=== PATIENT | male | born 1950 | race Caucasian/White ===

== ENCOUNTER → 2016-11-04 | Outpatient (CLI) | payer BC ==
[~2016-11-04] MED LIST: ALPR0.25 PO; CZR50 PO; GLUC1CAP33 PO; LACTTAB4 PO; MULT-506 PO; OXYSR10 PO; RXC5 PO; TRAV0.00 OPB
[2016-11-04 10:03] LABS: BASO % 0.5 %; BASO ABS # 0.02 K/uL (0-0.2); COMPLETE YES; EOS % 3.2 %; IG% 0.2 %; LYMPH % 31.5 %; LYMPH ABS # 1.37 K/uL (1.2-3.4); MEAN CELL VOLUME 95.5 fL (80-100); MEAN CORPUSCULAR HEMOGLOBIN 31.7 pg (25-34); MEAN CORPUSCULAR HGB CONC 33.2 g/dl (32-36); MEAN PLATELET VOLUME 9.7 fL (7.4-10.4); MONO % 9.2 %; NEUT % 55.4 %; PLATELET COUNT 236 K/uL (130-400); RED BLOOD COUNT 3.98 M/uL (4.7-6.1); WHITE BLOOD COUNT 4.35 K/uL (4.8-10.8)
[2016-11-04 12:34] LABS: ALT/SGPT 26 U/L (12-78); AST/SGOT 17 U/L (15-37); BLOOD UREA NITROGEN 16 mg/dl (7-18); BUN/CREATININE RATIO 17.6 (10-20); CALCIUM 8.5 mg/dl (8.5-10.1); CARBON DIOXIDE 27 mmol/L (21-32); CHLORIDE 108 mmol/L (98-107); CHOLESTEROL 172 mg/dl (0-200); CREATININE 0.92 mg/dl (0.60-1.40); GLUCOSE 99 mg/dl (70-99); POTASSIUM 3.9 mmol/L (3.5-5.1); SODIUM 139 mmol/L (136-145)
[2016-11-04 12:45] LABS: ALB/GLOB RATIO 0.9 (0.9-2); ALKALINE PHOSPHATASE 61 U/L (45-117); CHOLESTEROL/HDL RATIO 3.2; HDL CHOLESTEROL 54 mg/dl; LDL CHOLESTEROL CALCULATED 99 mg/dl; THYROID STIMULATING HORMONE 0.705 uIu/ml (0.300-4.500); TRIGLYCERIDES 94 mg/dl (0-150); VERY LOW DENSITY LIPOPROT CALC 19 mg/dl
== END | disposition home or self-care (01) ==
LOC: C.LAB1850 09:08
PROVIDERS: ATTEND Internal Medicine Pulmonary Disease
DX: F06.4 Anxiety disorder due to known physiological condition (principal)

== ENCOUNTER 2017-05-12 08:32 | Inpatient (IN) | payer BC, OTHER ==
[2017-04-27 15:11] VITALS: Ht 182.9 cm; Wt 103.9 kg
--- NOTE | 2017-04-27 15:53 | PAT Medication Instructions ---
Service Date Apr 27, 2017. Current Home Medication List Alprazolam (Xanax), 0.25 MG PO HS Glucosamine-Chondroitin (Glucosamine & Chondroitin 500-400 mg), 2 TAB PO QAM Ibuprofen (Advil), 400 MG PO HS Lactobacillus (Acidophilus), 1 TAB PO QAM Losartan Potassium (Losartan Potassium), 50 MG PO QAM Multivitamin (Multivitamin), 1 TAB PO QAM Travoprost (Travatan Z), 1 DROP OPB HS [Collagen Otc], 1 TAB PO QPM [Decongestant Otc], 1 TAB PO PRN [Msm], 1 TAB PO QAM Medication Instructions For Your Scheduled Surgery - Hold the following medications 2 weeks prior to surgery: [Msm], 1 TAB PO QAM [Collagen Otc], 1 TAB PO QPM Glucosamine-Chondroitin (Glucosamine & Chondroitin 500-400 mg), 2 TAB PO QAM - Hold the following medications 7 days prior to surgery per your surgeon's instructions: Ibuprofen (Advil), 400 MG PO HS - Hold the following medications the morning of surgery: Lactobacillus (Acidophilus), 1 TAB PO QAM Losartan Potassium (Losartan Potassium), 50 MG PO QAM Multivitamin (Multivitamin), 1 TAB PO QAM [Decongestant Otc], 1 TAB PO PRN - Take the following medications as scheduled the night before surgery: Alprazolam (Xanax), 0.25 MG PO HS Travoprost (Travatan Z), 1 DROP OPB HS [Decongestant Otc], 1 TAB PO PRN (if needed) NOTHING TO EAT OR DRINK AFTER MIDNIGHT If you have any questions please call us at [phone] or [phone] or [phone]
--- NOTE | 2017-04-27 16:32 | DIAGNOSTIC IMAGING REPORT ---
CHEST 2 VIEWS ROUTINE CLINICAL HISTORY: PAT preoperative COMPARISON STUDY: 09/18/2013 FINDINGS: The bones soft tissues and hemidiaphragms are normal. The cardiomediastinal silhouette is normal. The lungs are clear. The pulmonary vasculature is normal. IMPRESSION: Negative chest. The above report was generated using voice recognition software. It may contain grammatical, syntax or spelling errors. Electronically signed by: Francisco Ivey M.D. 04/27/2017 4:31 PM Dictated Date/Time: 04/27/2017 4:30 PM
[2017-04-27 16:33] LABS: BASO % 0.6 %; BASO ABS # 0.03 K/uL (0-0.2); EOS % 2.8 %; EOS ABS # 0.14 K/uL (0-0.5); HEMATOCRIT 38.4 % (42-52); HEMOGLOBIN 13.2 g/dL (14.0-18.0); IG# 0.01 K/uL (0.00-0.02); LYMPH % 30.9 %; LYMPH ABS # 1.55 K/uL (1.2-3.4); MEAN CELL VOLUME 95.8 fL (80-100); MEAN CORPUSCULAR HEMOGLOBIN 32.9 pg (25-34); MEAN CORPUSCULAR HGB CONC 34.4 g/dl (32-36); MEAN PLATELET VOLUME 9.8 fL (7.4-10.4); MONO % 8.2 %; MONO ABS # 0.41 K/uL (0.11-0.59); NEUT % 57.3 %; NEUT ABS # 2.88 K/uL (1.4-6.5); PLATELET COUNT 248 K/uL (130-400); RED CELL DISTRIBUTION WIDTH CV 13.1 % (11.5-14.5); RED CELL DISTRIBUTION WIDTH SD 45.5 fL (36.4-46.3); WHITE BLOOD COUNT 5.02 K/uL (4.8-10.8)
[2017-04-27 16:45] LABS: PTT PATIENT 24.6 SECONDS (21.0-31.0)
[2017-04-27 16:48] LABS: ALBUMIN 3.7 gm/dl (3.4-5.0); CALCIUM 8.7 mg/dl (8.5-10.1); CREATININE 0.82 mg/dl (0.60-1.40)
[2017-04-28 06:09] LABS: HEMOGLOBIN A1C 5.4 % (4.5-5.6)
--- NOTE | 2017-05-11 20:25 | HISTORY & PHYSICAL EXAMINATION ---
DATE OF ADMISSION: 05/12/2017 CHIEF COMPLAINT: Chronic left knee pain. HISTORY OF PRESENT ILLNESS: This is a 66-year-old male patient of Dr. Barkley'avelino complaining of chronic left knee pain, longstanding, now progressively getting worse. The patient has failed conservative treatment. The patient use anti-inflammatories. The patient had a partial knee replacement on the left in 2002. Since then, he has had increasing pain with hiking and biking and activities of daily living. He has been diagnosed with a loose partial left knee replacement and wishes to proceed with a left revision partial knee replacement to total knee replacement. PAST MEDICAL HISTORY: Hypertension, anxiety, osteoarthritis, spondylolysis in his lower back, BPH. SOCIAL HISTORY: Nonsmoker, 20 drink per week drinker. PAST SURGICAL HISTORY: Left knee, right knee, left shoulder, right hip, right shoulder, prostate. FAMILY HISTORY: Noncontributory. REVIEW OF SYSTEMS: The patient complains of chronic left knee pain after a partial knee replacement in 2002, failed conservative treatment. Otherwise, denies any shortness of breath, chest pain, nausea, vomiting or any other joint complaints. MEDICATIONS: 1. Losartan 50 mg daily. 2. Travatan 0.004% eyedrops 1 drop daily in the affected eye. 3. Glucosamine chondroitin daily. 4. Acidophilus capsule daily. 5. Ibuprofen 200 mg as needed. 6. Alprazolam 0.25 mg as needed daily. ALLERGIES: IODINE AND SEAFOOD. PHYSICAL EXAMINATION: GENERAL: Well-developed, well-nourished 66-year-old male in no acute distress. He is alert and oriented x3 and pleasant. HEENT: Normocephalic, atraumatic. Extraocular motions are intact. Pupils are equal and reactive to light. HEART: Regular rate and rhythm. No murmurs are appreciated. LUNGS: Clear. ABDOMEN: Soft, nontender, bowel sounds present. EXTREMITIES: Left knee reveals a varus deformity. He has a limited range of motion of negative 5-125 degrees of motion. Ligaments are stable. He has crepitation with passive range of motion. He has 5/5 strength. NEUROLOGIC: Neurovascularly he is intact in his left lower extremity. DIAGNOSES: Chronic left knee pain status post partial knee replacement in 2002. He also has a history of hypertension, anxiety, osteoarthritis, spondylolisthesis and benign prostatic hypertrophy. PLAN: The patient was advised of his diagnosis. Indications, risks, benefits, and postop course have all been reviewed. The patient wish to proceed with a left knee revision, partial knee replacement to total knee replacement. Necessary consent forms, preoperative testing and clearances will be obtained.
[2017-05-12] VITALS (7 sets, daily range): BP systolic 138–171; BP diastolic 74–98; PULSE 62–89; TEMP 36.5–36.8; O2SAT 93–99
[~2017-05-12] VITALS: Ht 182.9 cm; Wt 103.9 kg
[2017-05-12] MEDS: TRANEXAMIC ACID INJ 1,000 MG in SYRINGE 0 ML IV SCH ×2 (06:30→12:25)
[~2017-05-12 08:32] MED LIST changes: +ACETAMINOPHEN 500 MG TAB PO SCH; +ATROPINE SULFATE 0.1 MG/ML 5ML SYR IV PRN; +BUPIVACAINE 0.25% 30 ML VIAL ONE; +BUPIVACAINE 0.5 % 5 MG/1 ML PF 10ML VIAL ONE; +CEFAZOLIN 2000MG IV PUSH 10 ML IV SCH; +CeleBREX 200 MG CAP PO SCH; +DEXAMETHASONE 4 MG TAB PO SCH; +EpHEDrine SULFATE INJ 50 MG/ML AMP IV PRN; +FAMOTIDINE 20 MG TAB PO SCH; +FENTANYL CITRATE INJ 50 MCG/1 ML 2 ML VIAL IV PRN; +GABAPENTIN 300 MG CAP PO SCH; +IBUP-1050 PO; +LACTATED RINGER'S 1000ML 500 ML IV SCH; +METOCLOPRAMIDE HCL 10 MG TAB PO SCH; +MSM PO; +ONDANSETRON INJ 2 MG/ML 2 ML VIAL IV PRN; -OXYSR10 PO; +ROPIVACAINE 5MG/ML 30 ML 150 MG, BUPIVACAINE 0.5% MPF INJ 30 ML, EpINEphrine HCL INJ 0.... INFIL SCH; -RXC5 PO; +VANCOMYCIN INJ 1,500 MG in SODIUM CHLORIDE 0.9% 500ML 500 ML IV SCH; +[UNRECOGNIZED DRUG - OTHER] PO; +[UNRECOGNIZED DRUG - OTHER] PO
[2017-05-12] MEDS: LACTATED RINGER'S 1000ML 1,000 ML IV SCH ×2 (09:36→09:37)
[2017-05-12] MEDS ORDERED: MIDAZOLAM HCL 1 MG/ML 2ML VIAL ONE ×2 (12:00→14:15)
[2017-05-12] MEDS ORDERED: BACITRACIN 50000 UNIT VIAL ONE ×2 (12:27→16:16)
[2017-05-12] MEDS ORDERED: POVIDONE-IODINE OP SOLN 30 ML BTL ONE (12:27)
[2017-05-12] MEDS ORDERED: ORTHO JOINT ANESTHETIC ONE (12:27)
--- NOTE | 2017-05-12 12:30 | History & Physical Bridge Note ---
H&P Re-Evaluation Bridge Note: I have examined the patient, reviewed the History & Physical and in the interval since the performance of the History & Physical I have noted the following changes of clinical significance: No changes noted
[2017-05-12] MEDS ORDERED: PROPOFOL IV EMULSION 10 MG/ML 20 ML VIAL IV ONE ×2 (14:18→14:19)
[2017-05-12] MEDS ORDERED: LIDOCAINE HCL 2% 2 ML VIAL (20MG/ML) ONE (14:18)
[2017-05-12] MEDS ORDERED: FENTANYL CITRATE INJ 50 MCG/1 ML 2 ML VIAL ONE ×2 (14:18→17:23)
[2017-05-12] MEDS ORDERED: MoRPHine SULFATE 2 MG/ML CARP IV PRN (17:00)
[2017-05-12] MEDS ORDERED: SOD PHOSPHATE/SOD BIPHOSPHATE ENEMA 132 ML BTL PR PRN (17:00)
[2017-05-12] MEDS ORDERED: TRAMADOL HCL 50 MG TAB PO PRN (17:00)
[2017-05-12] MEDS ORDERED: MAGNESIUM HYDROXIDE SUSP 30 ML UDC PO PRN (17:00)
[2017-05-12] MEDS ORDERED: METOCLOPRAMIDE HCL INJ 5 MG/ML 2 ML VIAL IV PRN (17:00)
[2017-05-12] MEDS ORDERED: OXYCODONE HCL IR 5 MG TAB (IMMEDIATE RELEASE) PO PRN (17:00)
[2017-05-12] MEDS ORDERED: BISACODYL 10 MG SUPP PR PRN (17:00)
[2017-05-12] MEDS ORDERED: ZOLPIDEM TARTRATE 5 MG TAB PO PRN (17:00)
[2017-05-12] MEDS ORDERED: ONDANSETRON INJ 2 MG/ML 2 ML VIAL IV PRN (17:00)
--- NOTE | 2017-05-12 17:03 | [facility] Post Operative Brief Note ---
Immediate Operative Summary Operative Date May 12, 2017. 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 Surgeon Dr. Barkley Mens Locker Room Attendant Surgeon(s) Francisco Clark PA-C Estimated Blood Loss 50 ml Findings Consistent with Post-Op Diagnosis Specimens A: Removed hardware left partial knee B: Left knee bone and tissue Culture #1- Left knee synovial fluid- aerobic and anaerobic cultures sent stat for gram stain, culture and sensitivity. Sent from room at 1335. Frozen specimen #1- Left tibia soft tissue- for white blood cell/high power field. Sent from room at 1400 Drains None Anesthesia Type MAC Spinal Regional Complication(s) none
--- NOTE | 2017-05-12 17:35 | DIAGNOSTIC IMAGING REPORT ---
TWO VIEWS LEFT KNEE CLINICAL HISTORY: Postoperative examination. FINDINGS: AP and crosstable lateral portable views of the left knee are obtained. A left knee arthroplasty is in near anatomic alignment. There is a long tibial stem. There has been undersurface remodeling of the patella. No acute fracture is seen. There are expected postoperative changes around the knee including skin clips, a surgical drain, soft tissue edema, and subcutaneous gas. IMPRESSION: Expected postoperative changes status post left knee arthroplasty. No acute fracture is seen. Electronically signed by: Mike Gallegos M.D. 05/12/2017 5:34 PM Dictated Date/Time: 05/12/2017 5:33 PM
--- NOTE | 2017-05-12 17:37 | Anesthesiology Progress Note ---
Anesthesia Post Op Note Date & Time May 12, 2017 at 17:37 Vital Signs Pain Intensity: 3 Vital Signs Past 12 Hours Date Time Temp Pulse Resp B/P (MAP) Pulse Ox O2 Delivery O2 Flow Rate FiO2 05/12/17 17:35 74 16 138/87 98 Oxymask 3 05/12/17 17:25 71 16 141/76 98 Oxymask 5 05/12/17 17:15 83 16 140/80 98 Oxymask 10 05/12/17 17:08 36.2 90 16 141/88 98 Oxymask 10 05/12/17 09:02 36.6 62 20 171/98 99 Room Air Notes Mental Status: alert / awake / arousable, participated in evaluation Pt Amnestic to Procedure: Yes Nausea / Vomiting: adequately controlled Pain: adequately controlled Airway Patency, RR, SpO2: stable & adequate BP & HR: stable & adequate Hydration State: stable & adequate Neuraxial Anesthesia: was administered, sensory block is resolving Anesthetic Complications: no major complications apparent
[2017-05-12] MEDS: D5W AND 1/2NSS + 20MEQ KCL 1,000 ML IV SCH (19:28)
[2017-05-12] MEDS: CEFAZOLIN IV 2,000 MG in SYRINGE 5 ML IV SCH (19:39)
[2017-05-12] MEDS ORDERED: ALPRAZOLAM 0.25 MG TAB PO SCH (21:00)
[2017-05-12] MEDS: CeleBREX 200 MG CAP PO SCH (21:25)
[2017-05-12] MEDS: DOCUSATE SODIUM 100 MG CAP PO SCH (21:26)
[2017-05-12] MEDS: ACETAMINOPHEN 500 MG TAB PO SCH (21:27)
[2017-05-12] MEDS: TRAVOPROST Z 0.004% OPH SOLN 2.5 ML BTL OPB SCH (21:28)
--- NOTE | 2017-05-12 21:47 | OPERATIVE REPORT ---
DATE OF OPERATION: 05/12/2017 INDICATION FOR PROCEDURE: The patient is a 66-year-old male with recently developing increasing pain in his left knee. He had a repeat G type unicompartmental knee replacement 15 years ago. He did well for many, many years until just started having pain recently. We did get radiographs which demonstrated he had developed a very large subchondral cyst in the medial tibia with multiloculated cyst and bone loss due to osteolysis and he also has subluxation of the femur on the tibia medially with osteoarthritis in the lateral compartment now due to subluxation. The patient's labs demonstrate no evidence of infection. 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 POSTOPERATIVE DIAGNOSES: Same. OPERATIVE PROCEDURE: Revision of a medial compartment unicompartmental knee replacement to a total knee replacement with bone grafting of the tibial osteolytic bone cyst with autograft from tibial, femoral and patellar bone cuts. SURGEON: Dr. Barkley. WALL WORKER: RIGOBERTO Buchanan. ANESTHESIA: Spinal and regional block and Orthomix and sedation. DESCRIPTION OF PROCEDURE: The patient taken to the operating room, anesthetized under anesthesia as dictated. He was placed supine on the operating room table. Pneumatic tourniquet was placed on left upper thigh. His left lower extremity was prepped and draped in the usual sterile fashion using ChloraPrep. Knee exam demonstrated that he had no instability with valgus stress, very tight medial compartment, he did have some laxity of his lateral ligaments due to chronic varus knee and he had about a 10 degree flexion contracture, but had good flexion to 130 degrees. He had very large varicose veins in the left lower extremity. After his leg was sterilely prepped and draped, it was elevated, exsanguinated with Esmarch bandage. Pneumatic tourniquet was raised to 325 mmHg. He had a previous medial scar from his unicompartmental knee replacement, we utilized that and extended distally to the medial tibial tubercle and proximally above the patella to the mid quad tendon area. The skin was incised sharply and subcutaneous flaps were elevated. Incision was made through the medial retinaculum and extended up in the mid third of the quadriceps tendon and extended down to the medial tibial tubercle. Intraarticular findings demonstrated the tibial poly was loose, depressed into the tibia, there was bony buildup osteophytes around the medial side of the poly. Lateral femoral condyle was down the bone from subluxation impinging on the spine of the tibia. Patellofemoral joint had some moderate arthritis but relatively preserved. The femoral component was intact. 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 Prior any irrigation, we did take a culture. Then attention was taken to exposure. The system used to for revision was the [employer] with a primary femur and revision stemmed tibia cemented. The scarred infrapatellar fat pad was resected. We did releases around the proximal medial tibial plateau to expose the poly completely on the tibia. The lateral synovial bands were released. The fat pad over the anterior femur for the flange of the femoral component was resected in the area where the component would be placed. There was some chronic synovitis in the knee and all this chronic synovitis was resected so we did electrocautery synovectomy. The lateral meniscus was resected, crucial ligaments were resected and all osteophytes were resected. Attention was first taken to removing the femoral component. I used an Ultradrive to melt the cement. After work this around the component medially, laterally and posteriorly and superiorly, we used some stacked osteotomes to remove the femoral implant and removed all remainder of the cement from the femoral condyle. Then the tibial poly loose was just removed. Then, a drill was used to make an intramedullary hole into the femoral canal. The guide billy was placed and the distal femoral cutting guide was placed to cut a 5 degree valgus cut. The distal femoral cut was made with the oscillating saw. Then the knee was extended and a subperiosteal peel lateral release was performed around the patella. Patella width was measured and width was reproduced using a freehand cut technique and a 38 patella domes component. The drill holes were made for the component and the lateral facet was beveled off to prevent any impingement and the medial bone spurs were excised. Then a better retraction of the femur, the femur was sized with the sizing component. Because of the loss of the inferior femoral condyle, we had to tremaine out the epicondylar axis, matched this with the guide and match the sulcus of the patellofemoral joint with rotation laterally rotating the measuring guide to match the epicondylar axis, pinned this into position and then sized the femur for an 8 femoral component. Appropriate drill holes were made and then the 4-in-1 cutting block was impacted and anterior, posterior and chamfer cuts were made. No augments were required and a primary femoral component was able to be used. Then attention was taken to the tibia. First used the external tibial cutting guide to a perpendicular cut to the long axis of the tibia, making the cut just below the area where the poly was on the medial side of the knee. Disposed intramedullary canal and also exposed the large medial cyst. He only had a shell lot of bone remaining the medial metaphysis proximally of the tibia. There was a multiloculated large cyst. It was at least 3-1/2 close to 4 cm. It extended around the medial side posteriorly and then anteriorly to the midline and down into the metaphysis. The anterior medial aspect of the tibia was very thin. The cyst was curetted out. We used a rongeur and a curette and all cavities of cysts were curetted out with any cystic material and membrane. We did send off frozen sections of the soft tissue underlying the poly component on the tibia and some of the synovium, which came back no acute inflammation. The Gram stain also came back no organisms but some white blood cells. The tibia was then prepared first reaming the intramedullary canal of the tibia until we got good cortical chatter, which was about 15 mm stem; however, 15 was tight as we so chose to do cementing a 14 stem. Then the devices for preparing the proximal tibia were used. First, the drills left in and the intramedullary guide off the drill was set to take few more millimeters of the temporary cut that was first made. This was assured a perpendicular cut to the long axis of the tibia. We made this cut and then used the sizing guide if an 8 tibia best fit the entire bone of the tibia which was quite widened from the chronic remodeling of the tibia. We used a high offset 6 mm directed more anteromedially at the 11 o'clock position. The drill holes were used for the offset in the proximal portion of the stem of the tibia and the fins with the punch were used as well. This trial was assembled and pinned in position and attention was taken to the femoral trialing. The femoral trial was inserted, centered and the notch-cutting devices were used and a collet was placed, a 13 high flex insert gave balanced ligaments through full range of motion, but the patella did track off laterally, so had to do a lateral release leaving the synovium intact and this allowed the patella to track completely centrally through full range of motion and ligaments were balanced. At this point, tourniquet was up just under 2 hours, so we just put the tourniquet down and left it down for 90 to 20 minutes while I used the bone from the bone cuts, both the tibial and the femoral and from the patella. Cancellous bone was all removed with a rongeur, so we could bone graft the very large cyst. Then, some hemostasis was performed cauterizing any bleeders and areas of bleeding throughout the knee joint. Then, the knee was packed with some sponges and we used the Esmarch bandage again to exsanguinate the leg and the tourniquet was raised back up to 325 mmHg. Then went ahead and irrigated out the knee with antibiotic solution with bacitracin. Then went ahead and irrigated out the tibia copiously, femur and remainder of the joint and then tried all surfaces to expose the tibia and then placed a 20 mm trial stem to fill of the proximal canal and then placed bone graft into a large cyst to keeping the bone graft from going down into the canal and then we used a bone tamp to pack the bone graft into the large cyst, leading some of the cyst superficially to be cemented into the bone graft. After that was completed, we did place a bone restrictor at the appropriate depth into the canal and then mixed Palacos G cement. I then went ahead and cemented the tibial component first, which was the size 8 tibial component with a 14 x 120 mm cemented stem with a 6 mm offset at 11 o'clock position. This was impacted fully and excess cement was cleared. Then, the femur was cemented in place and impacted in position and then we placed a 30 mm high flex poly and extended the knee until the cement cured. We used batch of cement to cement the patella which was a 38 patella. We did soak the knee with a Betadine soak per protocol while the cement cured. After all cement cured, any excess cement was removed with an artist chisel had hardened and we took knee through full range of motion and the implants were stable. The knee was stable through full range of motion and patella tracked centrally. At this time, the knee was copiously irrigated with pulsatile lavage antibiotic solution with bacitracin. Then, the 2 drains were brought out laterally and connected to a Hemovac. The quadriceps tendon and medial retinaculum were closed with interrupted [id number] #1 Vicryl sutures. The knee was taken through full range of motion and repair was secure. The subcutaneous tissue was closed with interrupted 2-0 Vicryl sutures and the skin was closed with baltazar. Sterile Silverlon dressing was applied and the tourniquet was let down and the patient tolerated the procedure well. Estimated blood loss was around 50 mL. Specimens for frozen sections and cultures. RIGOBERTO Buchanan was my front desk assistant. He functioned as front desk assistant for the entire procedure. He assisted in patient positioning, prepping, draping, leg positioning, soft tissue retraction, instrument management in the subcutaneous and skin closure and will participate in the postoperative care of the patient. I attest to the content of the Intraoperative Record and any orders documented therein. Any exception s are noted below.
[2017-05-12] MEDS ORDERED: NURSING VERBAL MED ORDER ONE (22:15)
[2017-05-13] VITALS (7 sets, daily range): BP systolic 122–174; BP diastolic 64–77; PULSE 58–69; TEMP 36.5–36.8; O2SAT 94–98
[2017-05-13] MEDS: ALPRAZOLAM 0.25 MG TAB PO PRN (00:07)
[2017-05-13] MEDS: D5W AND 1/2NSS + 20MEQ KCL 1,000 ML IV SCH ×2 (03:33→13:49)
[2017-05-13] MEDS: CEFAZOLIN IV 2,000 MG in SYRINGE 5 ML IV SCH (03:34)
[2017-05-13] MEDS: RIVAROXABAN 10 MG TAB PO SCH (05:31)
[2017-05-13] MEDS: ACETAMINOPHEN 500 MG TAB PO SCH ×3 (05:31→21:04)
[2017-05-13 06:09] LABS: HEMATOCRIT 29.9 % (42-52); HEMOGLOBIN 10.2 g/dL (14.0-18.0); MEAN CELL VOLUME 96.1 fL (80-100); MEAN CORPUSCULAR HEMOGLOBIN 32.8 pg (25-34); MEAN CORPUSCULAR HGB CONC 34.1 g/dl (32-36); MEAN PLATELET VOLUME 9.7 fL (7.4-10.4); PLATELET COUNT 235 K/uL (130-400); RED CELL DISTRIBUTION WIDTH CV 12.9 % (11.5-14.5); RED CELL DISTRIBUTION WIDTH SD 44.7 fL (36.4-46.3); WHITE BLOOD COUNT 14.02 K/uL (4.8-10.8)
[2017-05-13 06:42] LABS: CALCIUM 7.7 mg/dl (8.5-10.1); CREATININE 0.98 mg/dl (0.60-1.40)
--- NOTE | 2017-05-13 07:54 | Orthopedic Progress Note ---
Orthopedic Progress Note Date of Service May 13, 2017. Subjective Post OP Day: 1 Reports: feeling well, pain controlled w PO medications, Denies: complaints, chest pain, SOB, nausea / vomiting, light headedness, calf pain Objective calves soft nontender, N/V intact, capillary refill less than 2 sec., dressing C /D/I, A&O x3, toes mobile Date Time Temp Pulse Resp B/P (MAP) Pulse Ox O2 Delivery O2 Flow Rate FiO2 05/13/17 07:42 36.7 61 19 135/73 (93) 94 Room Air 05/13/17 03:57 36.8 69 16 127/64 (85) 97 Room Air 05/12/17 22:55 Room Air 05/12/17 22:45 36.8 84 18 146/76 (99) 93 Room Air 05/12/17 21:33 36.6 83 18 152/78 (102) 94 Room Air 05/12/17 20:29 89 18 150/79 (102) 96 Nasal Cannula 2.0 05/12/17 19:30 36.6 78 18 150/78 (102) 96 Nasal Cannula 2.0 05/12/17 19:06 36.5 74 18 152/84 (106) 98 Nasal Cannula 2.0 05/12/17 18:30 97 Nasal Cannula 2.0 05/12/17 18:30 97 Nasal Cannula 2.0 05/12/17 18:30 36.8 84 18 138/74 (95) 97 Nasal Cannula 2.0 05/12/17 18:05 87 16 133/82 97 Nasal Cannula 3 05/12/17 17:55 78 16 130/70 98 Nasal Cannula 3 05/12/17 17:45 36.4 78 16 141/85 96 Nasal Cannula 3 05/12/17 17:35 74 16 138/87 98 Oxymask 3 05/12/17 17:25 71 16 141/76 98 Oxymask 5 05/12/17 17:15 83 16 140/80 98 Oxymask 10 05/12/17 17:08 36.2 90 16 141/88 98 Oxymask 10 05/12/17 09:02 36.6 62 20 171/98 99 Room Air Laboratory Results 24 Hours: Test 05/13/17 05:16 Hematocrit 29.9 % Hemoglobin 10.2 g/dL Assessment & Plan Assessment: POD #1, Revision Left partial knee replacement to TKA Plan: PT/ OT DVT proph- Xarelto D/C planning- Home w OPPT Inhouse Planning Pain Management: Celebrex, Morphine, PO Tylenol, Oxy IR DVT Prophylaxis: TEDs, SCDs, Xarelto Discharge Planning Discharge Planning: home with oppt Pain Management: Celebrex, PO Tylenol, Oxy IR DVT Prophylaxis: TEDs, Xarelto Therapy: Physical Therapy, Occupational Therapy
--- NOTE | 2017-05-13 08:40 | Medical Consult ---
Consultation Date of Consultation: May 13, 2017. Attending Physician: Juan M Barkley M.D. Reason for Consultation: Medical Management History of Present Illness This is a 66 yo M with pmhx of HTN, osteoarthritis, anxiety, significant alcohol use of more than 25 drinks per week, who presented for elective Left TKA by Dr. Barkley on 05/12/17. The patient was seen this morning and is doing well. His hemovac drain wasn't suctioning earlier and needed fixed, since then he has good amount of bloody drainage outs, so the line will remain in place today per his report. He states his left foot is still slightly numb, but has been ambulating about the josue with walker without difficulty. He is passing gas, no BM yet. He plans on home PT as he lives with his who is disabled and whom he cares for. He denies any issues with withdrawal, shaking, or feeling he needs etoh. 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[employer]) Allergies Coded Allergies: Canned Fish (Verified Allergy, Severe, ALL SEAFOOD=THROAT SWELLS, 05/12/17) NO KNOWN DRUG ALLERGIES (Verified Allergy, Unknown, none, 05/12/17) Current Inpatient Medications Current Inpatient Medications Medications (Trade) Dose Ordered Sig/Kb Route Start Time Stop Time Status Last Admin Dose Admin Lactobacillus Acidophilus (Floranex Tab) 1 tab QAM PO 05/13/17 09:00 06/12/17 08:59 Losartan Potassium (coZAAR TAB) 50 mg QAM PO 05/13/17 09:00 06/12/17 08:59 Travoprost (Travatan Z) 1 drops HS OPB 05/12/17 21:00 06/11/17 20:59 05/12/17 21:28 1 DROPS Potassium Chloride/Dextrose/ Sod Cl 1,000 ml @ 100 mls/hr Q10H IV 05/12/17 18:15 05/13/17 18:14 05/13/17 03:33 100 MLS/HR Celecoxib (CeleBREX CAP) 200 mg BID PO 05/12/17 21:00 06/11/17 20:59 05/12/17 21:25 200 MG Oxycodone HCl (Roxicodone Immediate Rel Tab) 1 TABLET FOR PAIN RATING... Q4H PRN PO 05/12/17 17:00 05/26/17 16:59 Morphine Sulfate (MoRPHine SULFATE INJ) FOR PAIN, 2-4MG 2MG FOR P... Q2H PRN IV 05/12/17 17:00 05/26/17 16:59 Acetaminophen (Tylenol Tab) 1,000 mg Q8H PO 05/12/17 22:00 06/11/17 21:59 05/13/17 05:31 1,000 MG Magnesium Hydroxide (Milk Of Magnesia Susp) 30 ml Q6H PRN PO 05/12/17 17:00 06/11/17 16:59 Bisacodyl (Dulcolax Supp) 10 mg DAILY PRN TX 05/12/17 17:00 06/11/17 16:59 Sodium Biphosphate/ Sodium Phosphate (Fleet Enema) 132 ml DAILY PRN TX 05/12/17 17:00 06/11/17 16:59 Docusate Sodium (coLACE CAP) 100 mg BID PO 05/12/17 21:00 06/11/17 20:59 05/12/17 21:26 100 MG Diphenhydramine HCl (Benadryl Cap) 25 mg Q8H PRN PO 05/12/17 17:00 06/11/17 16:59 Zolpidem Tartrate (Ambien Tab) 5 mg HSZ PRN PO 05/12/17 17:00 06/11/17 16:59 Multivitamins (Multivitamin Tab) 1 tab QAM PO 05/13/17 09:00 06/12/17 08:59 Ondansetron HCl (Zofran Inj) 4 mg Q6H PRN IV 05/12/17 17:00 06/11/17 16:59 Metoclopramide HCl (Reglan Inj) 10 mg Q6H PRN IV 05/12/17 17:00 06/11/17 16:59 Pantoprazole Sodium (Protonix Tab) 40 mg QAM PO 05/13/17 09:00 05/16/17 08:59 Tramadol HCl (Ultram Tab) 1 tablet for pain rating... Q4H PRN PO 05/12/17 17:00 06/11/17 16:59 Rivaroxaban (Xarelto Tab) 10 mg Q24H PO 05/13/17 06:00 05/27/17 05:59 05/13/17 05:31 10 MG Alprazolam (Xanax Tab) 0.25 mg HS PRN PO 05/12/17 22:30 06/11/17 22:29 05/13/17 00:07 0.25 MG Review of Systems Constitutional: No fever, No chills, No sweats Eyes: No redness, No diplopia ENT: No sore throat, No trouble swallowing Respiratory: No shortness of breath, No dyspnea on exertion Cardiovascular: No chest pain, No edema Abdomen: + problem reported (lst bm 2 days ago), No pain, No nausea, No vomiting Musculoskeletal: No joint pain, No calf pain Genitourinary - Male: No hematuria, No dysuria Neurologic: + numbness/tingling (LLE, slowly improving) Psychiatric: No depression symptoms, No anxiety Endocrine: No fatigue Integumentary: No rash, No itch Physical Exam Date Time Temp Pulse Resp B/P (MAP) Pulse Ox O2 Delivery O2 Flow Rate FiO2 05/13/17 07:42 36.7 61 19 135/73 (93) 94 Room Air 05/13/17 03:57 36.8 69 16 127/64 (85) 97 Room Air 05/12/17 22:55 Room Air 05/12/17 22:45 36.8 84 18 146/76 (99) 93 Room Air 05/12/17 21:33 36.6 83 18 152/78 (102) 94 Room Air 05/12/17 20:29 89 18 150/79 (102) 96 Nasal Cannula 2.0 05/12/17 19:30 36.6 78 18 150/78 (102) 96 Nasal Cannula 2.0 05/12/17 19:06 36.5 74 18 152/84 (106) 98 Nasal Cannula 2.0 05/12/17 18:30 97 Nasal Cannula 2.0 1/31/18 18:30 97 Nasal Cannula 2.0 05/12/17 18:30 36.8 84 18 138/74 (95) 97 Nasal Cannula 2.0 05/12/17 18:05 87 16 133/82 97 Nasal Cannula 3 05/12/17 17:55 78 16 130/70 98 Nasal Cannula 3 05/12/17 17:45 36.4 78 16 141/85 96 Nasal Cannula 3 05/12/17 17:35 74 16 138/87 98 Oxymask 3 05/12/17 17:25 71 16 141/76 98 Oxymask 5 05/12/17 17:15 83 16 140/80 98 Oxymask 10 05/12/17 17:08 36.2 90 16 141/88 98 Oxymask 10 05/12/17 09:02 36.6 62 20 171/98 99 Room Air General Appearance: WD/WN, no apparent distress Head: normocephalic, atraumatic Eyes: PERRL, EOMI ENT: normal ENT inspection, pharynx normal Neck: supple, no JVD Respiratory/Chest: chest non-tender, lungs clear, no respiratory distress, no accessory muscle use Cardiovascular: regular rate, rhythm, no murmur, normal peripheral pulses Abdomen/GI: normal bowel sounds, non tender, soft Back: normal inspection, no CVA tenderness Extremities/Musculoskelatal: no calf tenderness, no pedal edema, + pertinent finding (LLE with Jah wrap in place, bandage is C/D/I, icepack, hemovac drain in place) Neurologic/Psych: alert, normal mood/affect, oriented x 3 Skin: normal color, warm/dry Laboratory Results Last 24 Hours Test 05/13/17 05:16 White Blood Count 14.02 K/uL Red Blood Count 3.11 M/uL Hemoglobin 10.2 g/dL Hematocrit 29.9 % Mean Corpuscular Volume 96.1 fL Mean Corpuscular Hemoglobin 32.8 pg Mean Corpuscular Hemoglobin Concent 34.1 g/dl RDW Standard Deviation 44.7 fL RDW Coefficient of Variation 12.9 % Platelet Count 235 K/uL Mean Platelet Volume 9.7 fL Sodium Level 139 mmol/L Potassium Level 4.0 mmol/L Chloride Level 108 mmol/L Carbon Dioxide Level 25 mmol/L Anion Gap 6.0 mmol/L Blood Urea Nitrogen 19 mg/dl Creatinine 0.98 mg/dl Est Creatinine Clear Calc Drug Dose 92.4 ml/min Estimated GFR () 92.7 Estimated GFR (Non- 80.0 BUN/Creatinine Ratio 18.9 Random Glucose 132 mg/dl Calcium Level 7.7 mg/dl Assessment & Plan This is a 66 yo M with pmhx of HTN, osteoarthritis, anxiety, significant alcohol use of more than 20 drinks per week, who presented for elective Left TKA by Dr. Barkley on 05/12/17. S/p Left TKA - DVT ppx with xarelto, pain management and bowel regimen per primary team - PT/OT on board- plans for outpatient PT - Hgb 10.2, baseline of 14. HTN - Cont losartan as scheduled, VSS. Etoh Abuse - Cessation encouraged - currently no signs of withdrawal. Pt denies need for drink. DVT ppx: teds, scds, xarelto CODE: Full Medical will sign off at this time. Please feel free to call with questions and concerns.
[2017-05-13] MEDS: CeleBREX 200 MG CAP PO SCH ×2 (09:24→21:03)
[2017-05-13] MEDS: DOCUSATE SODIUM 100 MG CAP PO SCH ×2 (09:24→21:03)
[2017-05-13] MEDS: MULTIVITAMIN TAB PO SCH (09:25)
[2017-05-13] MEDS: LACTOBACILLUS ACIDOPHILUS (FLORANEX) TAB PO SCH (09:25)
[2017-05-13] MEDS: PANTOprazole SOD 40 MG TAB PO SCH (09:25)
[2017-05-13] MEDS: LOSARTAN POTASSIUM 50 MG TAB PO SCH (09:27)
--- NOTE | 2017-05-13 09:32 | Anesthesiology Progress Note ---
Anesthesia Post Op Note Date & Time May 13, 2017 at 09:30 Vital Signs Pain Intensity: 0.0 Vital Signs Past 12 Hours Date Time Temp Pulse Resp B/P (MAP) Pulse Ox O2 Delivery O2 Flow Rate FiO2 05/13/17 09:26 68 163/65 (97) 05/13/17 07:45 Room Air 05/13/17 07:42 36.7 61 19 135/73 (93) 94 Room Air 05/13/17 03:57 36.8 69 16 127/64 (85) 97 Room Air 05/12/17 22:55 Room Air 05/12/17 22:45 36.8 84 18 146/76 (99) 93 Room Air 05/12/17 21:33 36.6 83 18 152/78 (102) 94 Room Air Notes Mental Status: alert / awake / arousable, participated in evaluation Pt Amnestic to Procedure: Yes Nausea / Vomiting: adequately controlled Pain: adequately controlled Airway Patency, RR, SpO2: stable & adequate BP & HR: stable & adequate Hydration State: stable & adequate Neuraxial Anesthesia: sensory block resolved Anesthetic Complications: no major complications apparent
[2017-05-13] MEDS: TRAVOPROST Z 0.004% OPH SOLN 2.5 ML BTL OPB SCH (21:03)
[2017-05-14] MEDS: ALPRAZOLAM 0.25 MG TAB PO PRN (00:01)
[2017-05-14 04:42] VITALS: BP 137/74; PULSE 71
[2017-05-14] MEDS: RIVAROXABAN 10 MG TAB PO SCH (05:33)
[2017-05-14] MEDS: ACETAMINOPHEN 500 MG TAB PO SCH (05:33)
[2017-05-14 07:02] LABS: HEMOGLOBIN 8.7 g/dL (14.0-18.0); MEAN CELL VOLUME 97.4 fL (80-100); MEAN CORPUSCULAR HEMOGLOBIN 32.6 pg (25-34); MEAN CORPUSCULAR HGB CONC 33.5 g/dl (32-36); MEAN PLATELET VOLUME 9.6 fL (7.4-10.4); PLATELET COUNT 181 K/uL (130-400); RED CELL DISTRIBUTION WIDTH CV 13.2 % (11.5-14.5); RED CELL DISTRIBUTION WIDTH SD 46.4 fL (36.4-46.3); WHITE BLOOD COUNT 8.32 K/uL (4.8-10.8)
[2017-05-14 07:30] LABS: CALCIUM 7.6 mg/dl (8.5-10.1); CREATININE 0.87 mg/dl (0.60-1.40); POTASSIUM 3.9 mmol/L (3.5-5.1)
--- NOTE | 2017-05-14 07:58 | Orthopedic Progress Note ---
Orthopedic Progress Note Date of Service May 14, 2017. Subjective Post OP Day: 2 Reports: feeling well, pain controlled w PO medications, Denies: complaints, chest pain, SOB, nausea / vomiting, light headedness, calf pain Additional Notes: HGB DOWN TO 8.7, BP GOOD NO SYMPTOMS. NO HEART DISEASE. Objective calves soft nontender, N/V intact, capillary refill less than 2 sec., dressing C /D/I, A&O x3, toes mobile SILVERLON IN TACT. Date Time Temp Pulse Resp B/P (MAP) Pulse Ox O2 Delivery O2 Flow Rate FiO2 05/14/17 04:42 71 137/74 (95) 05/14/17 00:05 Room Air 05/13/17 22:57 36.5 66 16 174/75 (108) 95 Room Air 05/13/17 16:11 36.6 58 16 122/72 (89) 98 Room Air 05/13/17 15:10 Room Air 05/13/17 13:46 66 97 05/13/17 10:58 36.8 66 18 138/77 (97) 97 Room Air 05/13/17 09:26 68 163/65 (97) Laboratory Results 24 Hours: Test 05/14/17 06:29 Hematocrit 26.0 % Hemoglobin 8.7 g/dL Assessment & Plan Assessment: POD #2, Revision Left partial knee replacement to TKA Plan: PT/ OT DVT proph- Xarelto D/C planning- Home w OPPT TODAY. APPRECIATE MEDICAL INPUT. Inhouse Planning Pain Management: Celebrex, Morphine, PO Tylenol, Oxy IR DVT Prophylaxis: TEDs, SCDs, Xarelto Discharge Planning Discharge Planning: home with oppt Pain Management: Celebrex, PO Tylenol, Oxy IR DVT Prophylaxis: TEDs, Xarelto Therapy: Physical Therapy, Occupational Therapy
[2017-05-14] MEDS ORDERED: RXC5 PO (08:02)
[2017-05-14] MEDS ORDERED: ACET-24 PO (08:02)
[2017-05-14] MEDS ORDERED: XRL10 PO (08:02)
[2017-05-14] MEDS ORDERED: CLB200 PO (08:02)
--- NOTE | 2017-05-14 08:03 | Discharge Instructions ---
Discharge Instructions Date of Service May 14, 2017. Admission Reason for Admission: Failed Left Partial Knee Replacement Discharge Discharge Diagnosis / Problem: LEFT KNEE PARTIAL TO TKA Discharge Goals Goal(s): Improve function Activity Recommendations Activity Limitations: as noted below . Instructions / Follow-Up Instructions / Follow-Up ACTIVITY RECOMMENDATIONS: SELF CARE INSTRUCTIONS AFTER TOTAL KNEE REPLACEMENT A. You may need to continue a physical therapy program after discharge from the hospital. There are several options available to you. Your doctor will assist you in selecting the best one for you. 1. An out-patient facility 2 to 3 times a week for therapy or home therapy. 2. Continue working on all exercises taught to you in the hospital. Your goals should be to increase bending of your knee to 90 degrees and beyond and to fully straighten your knee. B. You may progress at your own pace from walking with a walker or crutches to a cane; then to no assistive devices. C. Make walking a part of your daily routine. Be up as much as comfortable with rest periods throughout the day. Rest with leg elevation is very important. Use the ice wrap frequently for the first 3-4 weeks. D. There are no restrictions on activities. You may ride in a car, shop, participate in band tumbler and all social activities. E. Wear the long elastic stockings (KELSEY hose) 20 hours a day for 2 weeks after surgery. They can be removed several times a day for laundering and for a bath. F. You may shower, no tub baths until cleared by your doctor. SPECIAL CARE INSTRUCTIONS: VERY IMPORTANT TO READ AND REVIEW A. There are a few signs you need to watch for after you are home. Call [facility] if you notice any of the followin. Increased severe knee pain. Some pain is expected especially when you exercise. 2. Increased swelling in your leg or knee; pain or swelling of the calf muscle in either lower leg. 3. Any fluid drainage from the incision. 4. Shortness of breath or chest pain. B. Please call [facility] at if you have any concerns or questions about your operation or recovery. The doctor or his nurse will return your call promptly. C. You must take antibiotics before dental work, bladder, bowel or other surgery. Your doctor will provide you with a permanent care to carry describing this precaution. IMPORTANT: * REMEMBER TO TAKE ASPIRIN, 81 MG, TWICE DAILY FOR 4 WEEKS UNLESS OTHERWISE DIRECTED. THIS IS YOUR BLOOD THINNER. * HIGH RISK PATIENTS MAY BE PRESCRIBED A STRONGER BLOOD THINNER. THIS WILL BE PROVIDED AT DISCHARGE. * CALL IF INCREASED PAIN, REDNESS, DRAINAGE OR FEVER GREATER THAT 101. * WEAR KELSEY HOSE 20 HOURS PER DAY FOR 2 WEEKS. * YOU MAY HAVE A LARGE BAND-AID LIKE DRESSING (SILVERON). THIS WILL REMAIN ON YOUR INCISION FOR 7 DAYS, THEN CAN BE REMOVED. IF INCISION IS LEAKING THROUGH DRESSING, CALL THE OFFICE . FOLLOW UP VISIT: If appointment is not already scheduled: Please call [facility] to make a follow-up appointment for 2 weeks after your surgery at . CHECK BLOOD WORK WITH RX PROVIDED NEXT WEEK ON WEDNESDAY Current Hospital Diet Patient's current hospital diet: Regular Diet Discharge Diet Recommended Diet: Regular Diet Procedures Procedures Performed: Left knee: Revision partial knee replacement to total knee arthroplasty bone grafting tibial cyst with autograft from tibial and femoral and patellar bone cuts. Pending Studies Studies pending at discharge: no Laboratory Results Hemoglobin A1c Test 04/27/17 16:05 Range/Units Estimated Average Glucose 108 mg/dl Hemoglobin A1c 5.4 4.5-5.6 % Medical Emergencies . Who to Call and When: Medical Emergencies: If at any time you feel your situation is an emergency, please call 911 immediately. . Non-Emergent Contact Non-Emergency issues call your: Primary Care Provider . "Provider Documentation" section prepared by Francisco Clark. . VTE Core Measure Inpt VTE Proph given/why not?: Other Anticoagulation (XARELTO), [place], SCD's [place] Drug Monitoring Program Search Results: patient reviewed within database, no issues identified
[2017-05-14] MEDS: LACTOBACILLUS ACIDOPHILUS (FLORANEX) TAB PO SCH (08:24)
[2017-05-14] MEDS: PANTOprazole SOD 40 MG TAB PO SCH (08:24)
[2017-05-14] MEDS: CeleBREX 200 MG CAP PO SCH (08:24)
[2017-05-14] MEDS: MULTIVITAMIN TAB PO SCH (08:24)
[2017-05-14] MEDS: DOCUSATE SODIUM 100 MG CAP PO SCH (08:24)
[2017-05-14 08:25] VITALS: BP 138/78; PULSE 70; TEMP 36.3; O2SAT 97
[2017-05-14] MEDS: LOSARTAN POTASSIUM 50 MG TAB PO SCH (08:28)
[2017-05-14 10:49] VITALS: BP 138/78; PULSE 70; TEMP 36.3; O2SAT 97
[2017-05-14 10:52] VITALS: O2SAT 97
== END 2017-05-14 11:46 | disposition home or self-care (01) | DRG 468 ==
LOC: C.ACU 08:32 → C.3E 12:23 → ENRESERV 17:48
PROVIDERS: ADMIT Orthopaedic Surgery Sports Medicine; ATTEND Orthopaedic Surgery Sports Medicine
PROC: 0SPW0JZ Removal of Synthetic Substitute from Left Knee Joint, Tibial Surface, Open Approach (ICD-10-PCS; principal; 2017-05-12 11:30)
PROC: 0SRD0J9 Replacement of Left Knee Joint with Synthetic Substitute, Cemented, Open Approach (ICD-10-PCS; principal; 2017-05-12 11:30)
DX: T84.033A Mechanical loosening of internal left knee prosthetic joint, initial encounter (principal); I10 Essential (primary) hypertension; N40.0 Benign prostatic hyperplasia without lower urinary tract symptoms; F41.9 Anxiety disorder, unspecified; F10.10 Alcohol abuse, uncomplicated; Z79.899 Other long term (current) drug therapy; Y83.1 Surgical operation with implant of artificial internal device as the cause of abnormal reaction of the patient, or of later complication, without mention of misadventure at the time of the procedure

== ENCOUNTER → 2017-05-18 | Outpatient (CLI) | payer BC ==
[~2017-05-18] MED LIST changes: +ACET-24 PO; -ACETAMINOPHEN 500 MG TAB PO SCH; -ATROPINE SULFATE 0.1 MG/ML 5ML SYR IV PRN; -BUPIVACAINE 0.25% 30 ML VIAL ONE; -BUPIVACAINE 0.5 % 5 MG/1 ML PF 10ML VIAL ONE; -CEFAZOLIN 2000MG IV PUSH 10 ML IV SCH; +CLB200 PO; -CeleBREX 200 MG CAP PO SCH; -DEXAMETHASONE 4 MG TAB PO SCH; -EpHEDrine SULFATE INJ 50 MG/ML AMP IV PRN; -FAMOTIDINE 20 MG TAB PO SCH; -FENTANYL CITRATE INJ 50 MCG/1 ML 2 ML VIAL IV PRN; -GABAPENTIN 300 MG CAP PO SCH; -IBUP-1050 PO; -LACTATED RINGER'S 1000ML 500 ML IV SCH; -METOCLOPRAMIDE HCL 10 MG TAB PO SCH; -MSM PO; -ONDANSETRON INJ 2 MG/ML 2 ML VIAL IV PRN; -ROPIVACAINE 5MG/ML 30 ML 150 MG, BUPIVACAINE 0.5% MPF INJ 30 ML, EpINEphrine HCL INJ 0.... INFIL SCH; +RXC5 PO; -VANCOMYCIN INJ 1,500 MG in SODIUM CHLORIDE 0.9% 500ML 500 ML IV SCH; +XRL10 PO
[2017-05-18 13:06] LABS: HEMATOCRIT 28.1 % (42-52); HEMOGLOBIN 9.4 g/dL (14.0-18.0); MEAN CELL VOLUME 96.6 fL (80-100); MEAN CORPUSCULAR HEMOGLOBIN 32.3 pg (25-34); MEAN CORPUSCULAR HGB CONC 33.5 g/dl (32-36); MEAN PLATELET VOLUME 9.7 fL (7.4-10.4); PLATELET COUNT 309 K/uL (130-400); RED CELL DISTRIBUTION WIDTH CV 12.8 % (11.5-14.5); RED CELL DISTRIBUTION WIDTH SD 45.3 fL (36.4-46.3); WHITE BLOOD COUNT 7.88 K/uL (4.8-10.8)
== END | disposition home or self-care (01) ==
LOC: C.LAB1850 12:11
PROVIDERS: ATTEND Physician Assistant
DX: D64.9 Anemia, unspecified (principal)

== ENCOUNTER 2023-09-22 08:24 | Observation (INO) ==
--- NOTE | 2023-09-09 10:14 | PAT Medication Instructions ---
Medication Instructions Date of Service September 09, 2023 Home Medications Medication Instructions Recorded amoxicillin 500 mg capsule 2,000 mg (4 x 500 mg) PO .COMPLEX 07/30/22 #4 caps antiarthritic combination no.2 900 mg tablet (glucosamine-chondroitin) 900 mg PO DAILY latanoprost 0.005 % eye drops 1 drp OPB HS ibuprofen 200 mg capsule 600 mg PO Q6H PRN amoxicillin 500 mg capsule 2,000 mg (4 x 500 mg) PO .COMPLEX acetaminophen 500 mg capsule 500 mg PO Q6H PRN alprazolam 0.25 mg tablet 0.25 mg PO DAILY PRN amlodipine 5 mg tablet 5 mg PO QAM apixaban 5 mg tablet (Eliquis) 5 mg PO BID atenolol 25 mg tablet 25 mg PO QPM losartan 100 mg-hydrochlorothiazide 12.5 mg tablet 1 tab PO QAM triamcinolone acetonide 0.1 % topical cream 1 applic topical UD PRN Continue as directed amoxicillin 500 mg capsule 2,000 mg (4 x 500 mg) PO .COMPLEX alprazolam 0.25 mg tablet 0.25 mg PO DAILY PRN(if needed) ASK your surgeon for instructions ibuprofen 200 mg capsule 600 mg PO Q6H PRN ASK your prescriber and surgeon apixaban 5 mg tablet (Eliquis) 5 mg PO BID STOP taking 2 weeks before surgery (or as soon as possible if surgery is within 2 weeks antiarthritic combination no.2 900 mg tablet (glucosamine-chondroitin) 900 mg PO DAILY STOP taking 24 hours before surgery triamcinolone acetonide 0.1 % topical cream 1 applic topical UD PRN DO NOT take the morning of surgery losartan 100 mg-hydrochlorothiazide 12.5 mg tablet 1 tab PO QAM Take morning of surgery With a small sip of water, OTHERWISE NOTHING TO EAT OR DRINK AFTER MIDNIGHT: acetaminophen 500 mg capsule 500 mg PO Q6H PRN(if needed) amlodipine 5 mg tablet 5 mg PO QAM Take evening before surgery latanoprost 0.005 % eye drops 1 drp OPB HS atenolol 25 mg tablet 25 mg PO QP acetaminophen 500 mg capsule 500 mg PO Q6H PRN(if needed) Other Notes If you have any questions please call us at [phone] or [phone] or [phone] or [phone]
--- NOTE | 2023-09-13 08:20 | Anesthesiology Consultation ---
Date of Service September 13, 2023 Assessment & Plan (1) Encounter for pre-operative examination: - Infectious disease screening: Per assessment on 09/13/23: No known infectious disease contacts or current infectious disease symptoms. No noted recent Covid positive test result. - Eliquis instructions: per surgeon/prescriber - Outpatient joint assessment: Pt currently scheduled for inpatient pathway. If surgeon requests review for outpatient joint pathway, patient is an acceptable candidate for outpatient joint program for given surgery from anesthesia standpoint pending surgeon's office assessment that patient is motivated, has good support and completes Same Day Joint Program preop requirements. - Positioning request: Patient requests being positioned upright/approximately 45 degree angle after surgery due to chronic back issue if/when possible. - Cardiology visit (03/29/23): "Blood pressure is at target. Heart rate is at target. Patient will continue with amlodipine 5 mg daily atenolol 25 mg daily, losartan plus HCTZ at 100/12.5 mg p.o. daily.. Atrial fibrillation.. Currently in sinus rhythm. Continue anticoagulation with Eliquis 5 mg p.o. twice daily and rate control with atenolol.. Pleasant 72-year-old gentleman who was referred to me for newly diagnosed atrial fibrillation. He underwent successful DC cardioversion. He has no prior cardiac history. Here for regular follow-up. He had an echocardiogram and stress test demonstrating EF of 60 to 65%, dilated RV with normal function, severe left and right atrial enlargement. No significant valvular pathology. His aortic root was dilated at 4.2 cm and his ascending thoracic aorta was dilated at 4.6 cm. Stress was negative for myocardial ischemia." - Patient acceptable risk for surgery pending surgeon-ordered PCP preop evaluation ([facility], appt 09/16). Chart Review Chart Review: Patient seen in Pre Admission Testing Teaching & Discussion Pre-Anesthesia Teaching/Discussion Notes: Instructed NPO after midnight before surgery,except medications with 15 cc of water. Medication instructions provided according to the PAT guidelines. History Surgery Operation Date: 09/22/23 11:25 Proposed Procedures p Right Total Shoulder Arthroplasty Reverse, Biceps Tenodesis - Juan M Barkley MD Height/Weight Height: 5 ft 11 in Weight: 99.7 kg Allergies Allergy/AdvReac Type Severity Reaction Status Date / Time Fish Containing Products Allergy Severe All Verified 09/09/23 14:11 seafood- throat swelling No Known Drug Allergies Allergy Unknown none Verified 09/09/23 09:14 Medications Home Medications Medication Instructions Recorded Confirmed Last Taken antiarthritic combination no.2 900 900 mg PO DAILY 11/08/18 09/09/23 Unknown mg tablet (glucosamine-chondroitin) latanoprost 0.005 % eye drops 1 drp OPB HS 11/08/18 09/09/23 Unknown ibuprofen 200 mg capsule 600 mg PO Q6H PRN Pain 01/07/22 09/09/23 Unknown amoxicillin 500 mg capsule 2,000 mg (4 x 500 mg) PO .COMPLEX 07/30/22 09/09/23 Unknown #4 caps acetaminophen 500 mg capsule 500 mg PO Q6H PRN Pain 07/30/23 09/09/23 Unknown alprazolam 0.25 mg tablet 0.25 mg PO DAILY PRN Anxiety 09/09/23 09/09/23 Unknown amlodipine 5 mg tablet 5 mg PO QAM 09/09/23 09/09/23 Unknown apixaban 5 mg tablet (Eliquis) 5 mg PO BID 09/09/23 09/09/23 Unknown atenolol 25 mg tablet 25 mg PO QPM 09/09/23 09/09/23 Unknown losartan 100 1 tab PO QAM 09/09/23 09/09/23 Unknown mg-hydrochlorothiazide 12.5 mg tablet triamcinolone acetonide 0.1 % 1 applic topical UD PRN Skin 09/09/23 09/09/23 Unknown topical cream Irritation Past Medical History Medical History Allergic rhinitis Anxiety Ascending aorta enlargement Echo 12/2022: Mildly dilated aortic root 4.2 cm and asc aorta 4.6 cm Atrial fibrillation Follows with [facility] cardio Taking Eliquis Chronic anemia DJD (degenerative joint disease) History of BPH Hypertension Insomnia Sensorineural hearing loss of both ears Hearing aids PRN Spondylolisthesis Tinnitus, bilateral Exercise / Class Metabolic Activity II 4-5 Yardwork/Stairs/Walk up hill (one FS: No CP, no SOB) Past Family History Family History Other No family history of adverse response to anesthesia Past Surgical History Surgical History H/O colonoscopy History of arthroscopy Right knee Right shoulder History of cardioversion 2022, [facility] History of prostate surgery laser procedure (for BPH), 2017 History of shoulder replacement left History of total hip arthroplasty R/L History of total knee replacement left x2 Hx of vasectomy S/P hernia repair inguinal hernia Scott teeth removed Past Anesthesia History No Hx of Anesthesia Complications and No Family Hx of Anesthesia Complications History of PONV No Hx of PONV and No Hx of Motion Sickness Social History Smoking Status: Former smoker tobacco type: cigars (Rare cigars use) Do You Dip or Chew Tobacco: No (Quit years ago) Smoking End Date: Quit cigs several years ago Hx Alcohol Use: Yes Alcohol type: beer alcohol intake frequency: 3 or more drinks per day (3-4 beers/day) Hx Substance Use: No substance use type: former substance user Review of Systems Patient denies chest pain, shortness of breath, dyspnea on exertion, fever, chills, cough, wheezing, palpitations. Physical Exam Vital Signs BP 122/73 P 75 TEMP 98.0 SP02 95%RA RESP 16 Physical Full cervical extension range of motion. Full TMJ range of motion. TMD > 3.5 finger breaths Mallampati Score 2 Dentition: intact, + several crowns Lungs: clear throughout to auscultation Cardiac: regular rate and rhythm, no murmurs noted Spine: normal Carotid arteries: negative bruit Extremities: no LE edema Lab Results Anesthesia Preop Results Results Anesthesia Widget: WBC 3.73 K/ul (4.8-10.8) L 09/13/23 Hgb 11.9 g/dl (14.0-18.0) L 09/13/23 Hct 35.0 % (42.0-52.0) L 09/13/23 Plt 230 K/uL (130-400) 09/13/23 Na 139 mmol/L (136-145) 09/13/23 K 3.9 mmol/L (3.5-5.1) 09/13/23 Cl 106 mmol/L (98-107) 09/13/23 CO2 28 mmol/L (21-32) 09/13/23 BUN 18 mg/dl (6-23) 09/13/23 Creat 0.82 mg/dl (0.6-1.4) 09/13/23 Glucose Level 105 mg/dl (70-99(Fasting)) H 09/13/23 PT 11.7 Seconds (9.0-12.0) 09/13/23 PTT 26 Seconds (21-31) 09/13/23 INR 1.1 (0.9-1.1) 09/13/23 Urine Color Yellow 09/13/23 Urine Appearance Clear (Clear) 09/13/23 Urine pH 6.5 (4.5-7.5) 09/13/23 Urine Specific Roll 1.019 (1.000-1.030) 09/13/23 Urine Protein Negative (Negative) 09/13/23 Urine Glucose (UA) Negative (Negative) 09/13/23 Urine Ketones Negative (Negative) 09/13/23 Urine Blood Negative (Negative) 09/13/23 Urine Nitrite Negative (Negative) 09/13/23 Urine Bilirubin Negative (Negative) 09/13/23 Urine Urobilinogen Negative (Negative) 09/13/23 Urine Leukocyte Esterase Negative (Negative) 09/13/23 Blood Type O Positive 09/13/23 Antibody Screen NEGATIVE 09/13/23 Testing Electrocardiogram Date: 03/29/23 SB with sinus arrhythmia at 53bpm. LAD. Inferior infarct, age undetermined. EKG done/reviewed at [facility] cardio appt from same day- per office visit note, "EKG demonstrates sinus bradycardia with rare PAC" Chest X-Ray Date: 09/13/23 FINDINGS: No pneumothorax. No pleural effusions. The cardiac silhouette remains mildly enlarged. No focal lung consolidations to suggest a pneumonia. No evidence for pulmonary edema. There is left shoulder prosthesis. IMPRESSION: Stable mild cardiomegaly. Otherwise, no acute process within the chest. Echocardiogram Date: 12/18/22 EF 60-65% No regional wall motion abnormalities Mild cLVH Moderately dilated RV No significant valvular pathology Severely dilated atria Mildly dilated aortic root 4.2 cm and asc aorta 4.6 cm Stress Test Date: 01/07/23 Negative exercise stress echo/ECG for ischemia 92% MPHR. 6.3 METS. Baseline EF 60% improves to greater than 70% with exercise. There were stress-induced PACs and additional PVCs during recovery.
--- NOTE | 2023-09-20 20:20 | History & Physical Report ---
Date of Service September 20, 2023 Assessment & Plan (1) Osteoarthritis of right glenohumeral joint: Plan: Multifactorial chronic right shoulder pain failed conservative management. Plan is to proceed with a reverse total shoulder replacement with biceps tenodesis. (2) Partial thickness rotator cuff tear: Rotator cuff tear trauma status: nontraumatic Laterality: right Qualified Code(s): M75.111 - Incomplete rotator cuff tear or rupture of right shoulder, not specified as traumatic (3) Biceps tendinopathy of right upper extremity: History of Present Illness Primary Care Provider: Phong Goddard MD Patient denies headaches, sweats, fevers, chills, double vision, blurred vision, cough, sore throat, dysphagia, chest pain, shortness of breath at rest, wheezing, n/v/d/c, numbness, tingling, fatigue, urinary symptoms. ROS positive for prior history of A-fib and irregular heart beat corrected with cardioversion. Occasional anxiety. Some shortness of breath walking uphill, history of anemia osteoarthritis including spondylolisthesis lumbar. Allergies Allergy/AdvReac Type Severity Reaction Status Date / Time Fish Containing Products Allergy Severe All Verified 09/17/23 08:11 seafood- throat swelling No Known Drug Allergies Allergy Unknown none Verified 09/17/23 08:11 Home Medications Medication Instructions Recorded Confirmed Type antiarthritic combination no.2 900 900 mg PO DAILY 11/08/18 09/17/23 History mg tablet (glucosamine-chondroitin) latanoprost 0.005 % eye drops 1 drp OPB HS 11/08/18 09/17/23 History ibuprofen 200 mg capsule 600 mg PO Q6H PRN Pain 01/07/22 09/17/23 History amoxicillin 500 mg capsule 2,000 mg (4 x 500 mg) PO .COMPLEX 07/30/22 09/17/23 Rx #4 caps acetaminophen 500 mg capsule 500 mg PO Q6H PRN Pain 07/30/23 09/17/23 History alprazolam 0.25 mg tablet 0.25 mg PO DAILY PRN Anxiety 09/09/23 09/17/23 History amlodipine 5 mg tablet 5 mg PO QAM 09/09/23 09/17/23 History apixaban 5 mg tablet (Eliquis) 5 mg PO BID 09/09/23 09/17/23 History atenolol 25 mg tablet 25 mg PO QPM 09/09/23 09/17/23 History losartan 100 1 tab PO QAM 09/09/23 09/17/23 History mg-hydrochlorothiazide 12.5 mg tablet triamcinolone acetonide 0.1 % 1 applic topical UD PRN Skin 09/09/23 09/17/23 History topical cream Irritation Past Med/Surg History Problem List (Updated 09/20/23 @ 20:20 by Juan M Barkley MD) Biceps tendinopathy of right upper extremity Partial thickness rotator cuff tear Osteoarthritis of right glenohumeral joint Encounter for pre-operative examination Medical History Chronic anemia Tinnitus, bilateral Spondylolisthesis Atrial fibrillation Follows with [facility] cardio Taking Eliquis Anxiety Sensorineural hearing loss of both ears Hearing aids PRN DJD (degenerative joint disease) Ascending aorta enlargement Echo 12/2022: Mildly dilated aortic root 4.2 cm and asc aorta 4.6 cm History of BPH Insomnia Hypertension Allergic rhinitis Surgical History History of cardioversion 2022, [facility] History of arthroscopy Right knee Right shoulder History of total hip arthroplasty R/L History of total knee replacement left x2 History of shoulder replacement left Hx of vasectomy History of prostate surgery laser procedure (for BPH), 2016 [place] teeth removed S/P hernia repair inguinal hernia H/O colonoscopy Family History Other No family history of adverse response to anesthesia Social History Smoking Status: Former smoker Tobacco Type: Cigars Smoking End Date: Quit cigs several years ago; Second Hand Exposure: Yes (hx); Do You Dip or Chew Tobacco: No (Quit years ago); Tobacco Cessation Education Requested by Patient: No Hx Alcohol Use: Yes Alcohol type: beer Hx Substance Use: No Preferred Language: Pakistani Communication Ability: Effective Sports Book Server Required: No Beliefs That Will Affect Care: None marital status: Current Living Situation: Spouse current occupational status: retired Other Information That Helps Us Care for You: No Feels Safe at Home: Yes Safety Concerns: Feels Safe At This Time Assistive Devices: Hearing Aid - Bilateral Assistive Devices Comment: hearing aids prn Review of Systems All systems reviewed & are unremarkable except as noted in HPI & below Physical Exam Constitutional: WD/WN, vitals as above Respiratory: normal respiratory effort; no respiratory distress Cardiovascular: Rate/Rhythm: regular rate and regular rhythm Musculoskeletal: Right shoulder exam demonstrates glenohumeral crepitation with range of motion. Diffuse anterior tenderness. Positive In[place] Neer impingement signs and positive belly press test. Weakness in external rotation and abduction. Range of motion 170 degrees forward flexion and abduction and 80 degrees external rotation 90 degrees internal rotation. Strength external rotation 4+/5 internal rotation 3+ to 4-/5 shoulder abduction 4+/5. Neurocirculatory exam intact. Left shoulder has scar from previous shoulder surgery Skin: no rashes, warm and dry Neurologic: normal touch/pain/proprioception Psychiatric: A+Ox3, euthymic affect Results & Data Diagnostic Findings X-rays and MRI demonstrate osteoarthritis of glenohumeral joint. There is interstitial tearing of the rotator cuff subluxation the biceps tendon into a partial tear of the subscapularis tendon with widening of the biceps tendon consistent with tendinopathy.
[~2023-09-22 08:24] MED LIST changes: -ACET-24 PO; -ALPR0.25 PO; +BUPIVACAINE 0.5 % 5 MG/1 ML PF 10ML VIAL ONE; -CLB200 PO; -CZR50 PO; -GLUC1CAP33 PO; -LACTTAB4 PO; -MULT-506 PO; -RXC5 PO; -TRAV0.00 OPB; -XRL10 PO; -[UNRECOGNIZED DRUG - OTHER] PO; -[UNRECOGNIZED DRUG - OTHER] PO
[2023-09-22] MEDS: FAMOTIDINE 20 MG TAB PO SCH (09:14)
[2023-09-22] MEDS: ACETAMINOPHEN 500 MG TAB PO SCH ×2 (09:14→22:57)
[2023-09-22] MEDS: METOCLOPRAMIDE HCL 10 MG TABLET PO SCH (09:14)
[2023-09-22] MEDS: CeleBREX 200 MG CAP PO SCH (09:14)
[2023-09-22] MEDS: GABAPENTIN 300 MG CAP PO SCH (09:14)
[2023-09-22] MEDS: LR 15ML/HR IV SCH (09:15)
[2023-09-22] MEDS: dexAMETHasone**PF** 10 MG/ML VIAL IV SCH (09:15)
[2023-09-22] MEDS: LR 60ML/HR IV SCH (09:18)
[2023-09-22] MEDS ORDERED: ePHEDrine sulfate 50 MG/ML AMP IV PRN (09:36)
[2023-09-22] MEDS ORDERED: fentaNYL citrate PF 100 MCG/2 ML VIAL IV PRN (09:36)
[2023-09-22] MEDS ORDERED: ONDANSETRON INJ 2 MG/ML 2 ML VIAL IV PRN ×2 (09:36→14:54)
[2023-09-22] MEDS ORDERED: ATROPINE SULFATE 0.1 MG/ML 10ML SYR IV PRN (09:36)
[2023-09-22] MEDS ORDERED: LIDOCAINE 2% 2 ML VIAL/AMP(20MG/ML) INFIL ONE (09:48)
[2023-09-22] MEDS ORDERED: ONDANSETRON INJ 2 MG/ML 2 ML VIAL ONE (09:48)
[2023-09-22] MEDS ORDERED: ROCURONIUM BROMIDE 10 MG/ML 5 ML VIAL IV ONE (09:48)
[2023-09-22] MEDS ORDERED: fentaNYL citrate PF 100 MCG/2 ML VIAL ONE (09:48)
[2023-09-22] MEDS ORDERED: PROPOFOL IV EMULSION 10 MG/ML 20 ML VIAL IV ONE (09:48)
[2023-09-22] MEDS ORDERED: MIDAZOLAM HCL 1 MG/ML 2ML VIAL ONE (09:48)
--- NOTE | 2023-09-22 10:18 | History & Physical Bridge Note ---
Date of Service September 22, 2023 History & Physical Bridge Note I have examined the patient, reviewed the History & Physical and in the interval since the performance of the History & Physical I have noted the following changes of clinical significance: no changes noted
[2023-09-22] MEDS: TRANEXAMIC ACID 1,000 MG **IV Pre-op IV SCH (10:20)
[2023-09-22] MEDS: ceFAZolin 2000MG 2,000 MG/15 ML SYR IV SCH ×2 (11:00→20:42)
[2023-09-22] MEDS: TRANEXAMIC ACID 1,000 MG **IV Intra-op IV SCH (12:54)
[2023-09-22] MEDS ORDERED: DexMEDEtomidine HCL IV 100 MCG/ML VIAL IV ONE (12:56)
[2023-09-22] MEDS ORDERED: SUGAMMADEX SODIUM 200 MG/2 ML VIAL IV ONE (13:06)
--- NOTE | 2023-09-22 13:32 | Operative Report ---
Post Operative Report Pre & Post Diagnosis Operation Date: 09/22/23 10:05 Pre-Op Diagnosis: Osteoarthritis of Right Glenohumeral Joint, dislocation biceps tendon, rotator cuff tear subscapularis tendon, interstitial tear supraspinatus tendon rotator cuff with rotator cuff tendinopathy. Post-Op Diagnosis: Same I identified the patient and participated in the time-out.: Yes Procedure Operation Date: 09/22/23 10:05 Actual Procedures p Right Reverse Total Shoulder Arthroplasty, Biceps Tenodesis(Right) - Juan M Barkley MD Surgeon Juan M Barkley MD [employer] Andre FRANKLIN Estimated Blood Loss 40 Findings Consistent with Post-Op Diagnosis Specimens Humeral head Drains 2 Hemovac Anesthesia Type General Regional Complications none Disposition Disposition: Recovery Room Indications See op note Description of Procedure 73-year-old male with chronic pain right shoulder with failed conservative management. Patient has x-rays and MRI demonstrating advanced glenohumeral osteoarthritis with biceps tendinopathy with a dislocation of the biceps through an upper subscapularis tendon tear with interstitial tearing and tendinopathy of the supraspinatus. Previous arthroscopic surgery with decompression distal clavicle excision and some heterotopic bone at the AC joint. The patient was taken to the operating room and anesthetized under regional block and general anesthetic. The patient was positioned on the operating table in a 30 beach chair position with a towel roll under the medial border of the right scapula. The arm was draped free to be able to manipulate the shoulder as needed. The right upper extremity was prepped and draped in usual sterile fashion. Exam demonstrated 165 degrees forward flexion 110 degrees abduction external rotation to 80 degrees and internal rotation 40 degrees. [id number] crepitation. An anterior deltopectoral approach was performed. A longitudinal incision was made in the deltopectoral interval. The skin was incised sharply. Subcutaneous flaps were elevated off the fascia. The cephalic vein which was relatively small in size was dissected out and retracted lateral with the deltoid. The clavipectoral fascia was divided at the lateral margin of the conjoined tendon and extended up to the CA ligament. The following findings were noted: There was articular debris within the biceps tendon sheath and chronic tenosynovitis. There was an upper subscapularis tendon tear with the biceps dislocated anteriorly within the subscapularis tendon tear. Supraspinatus tendon had interstitial tearing outer surface was intact. Biceps tendon had tendinopathy and widening proximal. There was subacromial bursitis.. The upper centimeter of the pectoralis was released for inferior exposure. A self-retaining retractor was placed. The tendon sheath was resected around the biceps tendon and all the debris was removed.. the biceps tendon was tenodesed to the pectoralis tendon with #2 FiberWire. The proximal biceps was resected. The subscapularis muscle fibers were split longitudinally at the level of the circumflex vessels. The circumflex vessels were identified and tied off with silk ties and divided laterally. A Kitner elevator was used to free up the inferior fibers of the subscapularis off of the capsule. The axillary nerve was identified with a tug test and protected with a blunt Rylee retractor between the nerve and the capsule. The subscapularis tendon was then taken down off of the lesser tuberosity subperiosteally, a Vicryl traction suture was placed and a subperiosteal dissection was performed along the neck of the humerus as the arm was gradually externally rotated exposing the humeral head. The humeral head findings demonstrated grade 4 eburnated bone with posterior inferior and anterior osteophytes. There are also osteophytes in the bicipital groove and these were resected.. retractors were readjusted and the inferior osteophytes were all resected using an artist chisel. A Church elevator was used to assist in releasing the capsule of the neck of the humerus. The capsule was divided with Del Cid scissors down to the glenoid released off the anterior glenoid and the rotator interval was released to meet the capsular release and a 360 release of the subscapularis was accomplished. A Fukuda retractor was placed into the joint retracting the humeral head posterior. Glenoid findings demonstrated eburnated bone on 70% of the glenoid mainly posterior with rim of articular cartilage remaining that was degenerative but intact anteriorly and a crescent type shape. The labrum was degenerative and had calcifications.. The labrum and remainder of biceps tendon was resected. an anterior-inferior and posterior inferior capsular release were performed with electrocautery and a Church elevator on bone with the axillary nerve protected inferiorly by the retractor. Attention was then taken to the humeral preparation. The cutting guide was placed into the humeral head. It was positioned at 20 of retroversion. Oscillating saw was used to resect the humeral head giving the cut above the level of the posterior rotator cuff insertion site. The humerus was then prepared for the stem. I used the ascend flex stem from [facility]. The bone of the metaphysis and the proximal humerus was extremely hard so we ended up downsizing from predicted templating. I also chose to use a standard stem length. I also curetted out a large cyst which was noted on the previous MRI. The sizing broaches were used followed by trial broaches up to a size 4B standard which had the appropriate fit and fill. The appropriate sized cut protector was placed. The humerus was then retracted posterior to the glenoid. The glenoid was sized for a 29 baseplate. The guide for the baseplate was positioned in a 10 inferior tilt and the central drill hole was made. The reamer for the 29 baseplate was used. The central drill was widened for the peg. The 29 mm standard post hydroxyapatite-coated aequalis baseplate was impacted into position. Bone was extremely hard and it was an excellent tight press-fit. The base plate was transfixed further with superior and inferior locking screws and anterior and posterior compression screws with stable fixation. The fan reamer was used for the 42 mm millimeter glenoid sphere. After irrigation the center and 42 mm glenoid sphere was impacted onto the baseplate and the security screw was tightened. Attention was taken back to the humerus. The cut protector was removed and the +0 high offset humeral tray trial was assembled to the trial stem rotated appropriately to get bony coverage and then screwed in position. A trial reduction was performed. A +9, 42 mm trial insert demonstrated good stability and no shuck. The trials were removed. 3 drill holes are made into the harder bone in the bicipital groove area and 3 #5 FiberWire sutures were placed transosseously. The canal was irrigated with antibiotic solution with bacitracin. The final component was assembled. The final component was ascend Flex 4B standard stem assemble 2+0 high offset tray with a +9, 42 mm reversed polyethylene insert. This was then impacted into the humerus with a tight press-fit. It was reduced to the glenoid sphere. Stability was verified. Subscapularis was repaired with the #5 FiberWire sutures using Brandon-Geoffrey suture technique. Lateral row soft tissue repair was performed with #2 FiberWire [id number] sutures. The pectoralis was repaired with #2 FiberWire [id number] sutures reinforcing the biceps tendon tenodesis. The arm was taken through a range of motion which demonstrated 145 degrees forward elevation, 100 degrees abduction, 70 degrees external rotation without any tension on repair.. The implant was stable through the range of motion tested. The wound was copiously irrigated. Final irrigation was Xperience. 2 Hemovac drains were placed. The deltopectoral interval was closed with [id number] #1 Vicryl sutures. The subcutaneous tissues were closed with 2-0 Vicryl sutures. The skin was closed with surgical baltazar. Sterile dressings were applied and a shoulder immobilizer. Andre FRANKLIN, my physician patient services assistant acted as home based assistant throughout the procedure .He performed functions including patient positioning, arm positioning, prepping and draping, soft tissue retraction, instrument management, suture management and performed the subcutaneous and skin closure and will participate in the postoperative care of the patient. I attest to the content of the Intraoperative Record and any orders documented therein. Any exceptions are noted below.
--- NOTE | 2023-09-22 14:02 | Anesthesiology Progress Note ---
Date of Service September 22, 2023 Anesthesia Post Procedure Vital Signs Vital Signs: Temp Pulse Pulse Resp BP Pulse Ox O2 Del Method 09/22/23 14:00 78 14 114/76 96 Room Air 09/22/23 13:50 66 14 123/70 97 Oxymask 09/22/23 13:40 64 15 121/69 97 Oxymask 09/22/23 13:34 36.3 C L 62 12 112/65 95 Oxymask 09/22/23 08:50 36.5 C 63 18 137/84 98 Room Air O2 Flow Rate 09/22/23 14:00 09/22/23 13:50 3 09/22/23 13:40 6 09/22/23 13:34 6 09/22/23 08:50 Transfer of Care Handoff Completed per policy Notes Mental Status: alert / awake / arousable Patient Amnestic to Procedure: Yes Nausea / Vomiting: adequately controlled Pain: adequately controlled Airway Patency, RR, SpO2: stable & adequate BP & HR: stable & adequate Hydration State: stable & adequate Anesthetic Complications: no major complications apparent
--- NOTE | 2023-09-22 14:31 | XRay Report ---
XR shoulder RT min 2V routine HISTORY: 73 years-old Male Post shoulder surgery right shoulder arthroplasty COMPARISON: Chest radiograph 09/13/2023 TECHNIQUE: 2 views of the right shoulder FINDINGS: Reverse right shoulder arthroplasty demonstrates satisfactory alignment. Overlying skin baltazar with expected postoperative soft tissue swelling and deep tissue air with surgical drainage catheter. Unch anged appearance of the AC joint. IMPRESSION: Total joint arthroplasty with expected postoperative changes. ACT 112: Negative or not required by law. The above report was generated using voice recognition software. It may contain grammatical, syntax o r spelling errors. Electronically signed by: Sam Choi M.D. 09/22/2023 2:30 PM
[2023-09-22] MEDS: SODIUM CHLORIDE 0.9% 1,000 ML IV SCH (14:50)
[2023-09-22] MEDS ORDERED: NALOXONE HCL 0.4 MG/1 ML VIAL/CARP IV PRN (14:54)
[2023-09-22] MEDS ORDERED: bisacodyL 10 MG SUPP PR PRN (14:54)
[2023-09-22] MEDS ORDERED: oxyCODONE HCL IR 5 MG TAB (IMMEDIATE RELEASE) PO PRN (14:54)
[2023-09-22] MEDS ORDERED: HYDROmorphone INJ 0.5 MG/0.5 ML SYR IV PRN (14:54)
[2023-09-22] MEDS ORDERED: MAGNESIUM HYDROXIDE SUSP 30 ML UDC PO PRN (14:54)
[2023-09-22] MEDS ORDERED: diphenhydrAMINE 50 MG/ML VIAL IV PRN (14:54)
--- NOTE | 2023-09-22 17:18 | Hospitalist Consultation ---
Date of Consultation September 22, 2023 Assessment & Plan (1) Osteoarthritis of right glenohumeral joint: s/p Right Reverse Total Shoulder Arthroplasty, Biceps Tenodesis(Right) - Juan M Barkley MD 09/21 EBL 40cc Pain control, bowel regimen, therapy, post-operative orders per primary service Obtaining EKG given appears in afib- ekg confirming afib, rate 62bpm. LAD (appears similar to old EKG w/ afib) -No need to move to monitored bed but if any tachycardia/CP/SOb would obtain repeat chemistries to eval electrolytes/move to monitored bed however appears to be doing quite well post-operatively and ambulating in the room without issue Monitor labs in AM (2) Biceps tendinopathy of right upper extremity: as above (3) Atrial fibrillation: Follows with Dr Guerrero, does not appear to have recent EKG since March but is s/p cardioversion and most recent EKG NSR APPEARS TO BE IN AFIB ON EXAM, however rates controlled --> to CONTINUE atenolol 25mg QPM, amlodipine 5mg QAM Eliquis as above to resume PM 09/22 per primary service Will add TSH to AM labs for completeness (last checked 2022) Monitor chemistries w/ AM labs, keep mag/K replete (4) Hypertension: BP stable/low normal post-op at 111/71 Home HCTZ-Losartan placed on hold for now and will monitor BP overnight/renal function in AM Continues on atenolol 25mg QPM (hx atrial fibrillation -eliquis to resume evening 09/22 per primary service), amlodipine WAM (5) Anxiety: continue alprazolam as needed Plan Hospitalist service will follow along. Please call with any questions/concerns. Supervising Physician Co-Signing Physician Notes I personally saw and examined the patient. I verified all burgos points and agree with Ashley Montalvo PA-C with the following exceptions and/or additions: 73 year old male POD #0 Right Reverse Total Shoulder Arthroplasty. EBL 40ml. No acute complaints. O/E irregular HR, regular rhythm, no murmurs, Chest CTAB, Abdo SNT A/P VTE/Pain/bowel regimen per primary orthopedic team Paroxysmal atrial fibrillation - currently in a. fib but rate controlled, no specific treatment required, restart Eliquis HTN - Hold losartan/HCTZ pending serial BP measurements. Continue amlodipine and atenolol. History of Present Illness Reason for Consultation: post-op management Requesting Physician: Dr Barkley Attending Physician: Juan M Barkley MD History of Present Illness 73yo male with PMHx significant for afib (s/p cardioversion, on eliquis-held 3 days prior to surgery), HTN, anxiety, insomnia presented for RIGHT reverse shoulder arthroplasty with Dr Barkely this morning after failure of conservative management. EBL 40cc. Evaluated in room 312, doing well. Sitting up in the chair, just finishing supper. On room air. Pain controlled. Sensation returning but still having some numbness/decreased ability to make fist but improving since surgery. Remains in sling, is right handed. Has appt w/ Dr Guerrero October 11 but thinking of rescheduling as driving going to be difficult. On exam, appears in afib, RN to obtain EKG. Prior EKG from March in NSR and was cardioverted. He notes he did note to be in afib last year w/ ambulation issues due to right hip pain but improved since intervention on such. No CP/SOB/palpitations and reports HR on the lower side prior to surgery and is on atenolol. Confirmed did hold his eliquis 3 days prior to surgery. Interestingly, no pre-op EKG however patient reports anesthesiologist reported he was in afib prior to surgery. Rates controlled at present time/no symptoms or need to move to monitored bed but to alert if any issues. Will monitor mag w/ other electrolytes in AM. Patient plans on dc in AM after monitoring overnight. Questions/concerns addressed at this time. Allergies Allergy/AdvReac Type Severity Reaction Status Date / Time Fish Containing Products Allergy Severe All Verified 09/22/23 08:55 seafood- throat swelling No Known Drug Allergies Allergy Unknown none Verified 09/22/23 08:55 Home Medications Medication Instructions Recorded Confirmed Type antiarthritic combination no.2 900 900 mg PO DAILY 11/08/18 09/22/23 History mg tablet (glucosamine-chondroitin) latanoprost 0.005 % eye drops 1 drp OPB HS 11/08/18 09/22/23 History ibuprofen 200 mg capsule 600 mg PO Q6H PRN Pain 01/07/22 09/22/23 History amoxicillin 500 mg capsule 2,000 mg (4 x 500 mg) PO .COMPLEX 07/30/22 09/22/23 Rx #4 caps acetaminophen 500 mg capsule 500 mg PO Q6H PRN Pain 07/30/23 09/22/23 History alprazolam 0.25 mg tablet 0.25 mg PO DAILY PRN Anxiety 09/09/23 09/22/23 History amlodipine 5 mg tablet 5 mg PO QAM 09/09/23 09/22/23 History apixaban 5 mg tablet (Eliquis) 5 mg PO BID 09/09/23 09/22/23 History atenolol 25 mg tablet 25 mg PO QPM 09/09/23 09/22/23 History losartan 100 1 tab PO QAM 09/09/23 09/22/23 History mg-hydrochlorothiazide 12.5 mg tablet triamcinolone acetonide 0.1 % 1 applic topical UD PRN Skin 09/09/23 09/22/23 History topical cream Irritation acetaminophen 500 mg capsule 1,000 mg (2 x 500 mg) PO Q8H pain 09/22/23 Rx 14 days #84 caps Patient History Medical History (Updated 09/22/23 @ 17:12 by Ashley Montalvo PA-C) Chronic anemia Tinnitus, bilateral Spondylolisthesis Atrial fibrillation Follows with [facility] cardio Taking Eliquis Anxiety Sensorineural hearing loss of both ears Hearing aids PRN DJD (degenerative joint disease) Ascending aorta enlargement Echo 12/2022: Mildly dilated aortic root 4.2 cm and asc aorta 4.6 cm Insomnia Allergic rhinitis Surgical History History of cardioversion 2022, [facility] History of arthroscopy Right knee Right shoulder History of total hip arthroplasty R/L History of total knee replacement left x2 History of shoulder replacement left Hx of vasectomy History of prostate surgery laser procedure (for BPH), 2017 [place] teeth removed S/P hernia repair inguinal hernia H/O colonoscopy Family History Other No family history of adverse response to anesthesia Social History Smoking Status: Former smoker Tobacco Type: Cigars Smoking End Date: Quit cigs several years ago; Second Hand Exposure: Yes (hx); Do You Dip or Chew Tobacco: No (Quit years ago); Tobacco Cessation Education Requested by Patient: No Hx Alcohol Use: Yes Alcohol type: beer Hx Substance Use: No Preferred Language: Indian Communication Ability: Effective Whistle Punk Required: No Beliefs That Will Affect Care: None marital status: Current Living Situation: Spouse current occupational status: retired Other Information That Helps Us Care for You: No Feels Safe at Home: Yes Safety Concerns: Feels Safe At This Time Assistive Devices: Hearing Aid - Bilateral Assistive Devices Comment: hearing aids prn Review of Systems Review of Systems: All systems reviewed & are unremarkable except as noted in HPI & below Physical Exam Physical Exam: General: WD/WN male sitting up in recliner chair, eating dinner, NAD HEENT; head atraumatic, normocephalic, mmm, trachea midline Resp; even, unlabored, no w/c/r, on room air 96% CV: irregularly irregular, rates in 60-70s, faint systolic murmur, no pitting edema/calf tenderness, pulses present GI: +BS, soft/NT ; no thapa MSK/Neuro: sling to RIGHT arm in place, 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 but sensation to pressure intact, slightly diminished to light touch, cap refill wnl and pulse palpable Psych: AOx3, cooperative with exam Results & Data Results & Data Vital Signs (Past 12 Hours) Vital Signs Temp Pulse Pulse Resp BP Pulse Ox O2 Del Method 09/22/23 16:45 36.5 C 69 16 111/71 96 Room Air 09/22/23 15:48 36.5 C 65 18 104/66 95 Room Air 09/22/23 15:20 36.5 C 75 20 113/73 94 Room Air 09/22/23 14:45 Room Air 09/22/23 14:45 36.6 C 72 20 121/75 93 Room Air 09/22/23 14:20 65 20 108/65 92 Room Air 09/22/23 14:10 36.5 C 64 14 113/71 93 Room Air 09/22/23 14:00 78 14 114/76 96 Room Air 09/22/23 13:50 66 14 123/70 97 Oxymask 09/22/23 13:40 64 15 121/69 97 Oxymask 09/22/23 13:34 36.3 C L 62 12 112/65 95 Oxymask 09/22/23 08:50 36.5 C 63 18 137/84 98 Room Air O2 Flow Rate 09/22/23 16:45 09/22/23 15:48 09/22/23 15:20 09/22/23 14:45 09/22/23 14:45 09/22/23 14:20 09/22/23 14:10 09/22/23 14:00 09/22/23 13:50 3 09/22/23 13:40 6 09/22/23 13:34 6 09/22/23 08:50 Diagnostic Findings Shoulder X-Ray 09/22/23 13:39 XR shoulder RT min 2V routine HISTORY: 73 years-old Male Post shoulder surgery right shoulder arthroplasty COMPARISON: Chest radiograph 09/13/2023 TECHNIQUE: 2 views of the right shoulder FINDINGS: Reverse right shoulder arthroplasty demonstrates satisfactory alignment. Overlying skin baltazar with expected postoperative soft tissue swelling and deep tissue air with surgical drainage catheter. Unchanged appearance of the AC joint. IMPRESSION: Total joint arthroplasty with expected postoperative changes. ACT 112: Negative or not required by law. The above report was generated using voice recognition software. It may contain grammatical, syntax or spelling errors. Electronically signed by: Sam Choi M.D. 09/22/2023 2:30 PM PG Care Time/CCT Total # of Minutes Spent Total Time Spent with Patient: Total time spent is greater than 50% in coordination of care (as documented) at patient's floor/unit and/or counseling patient: Coding Level of Care Code 85352 IN/OBS CONSULT LVL 3,45M Diagnoses Osteoarthritis of right glenohumeral joint M19.011 Biceps tendinopathy of right upper extremity M67.921 Atrial fibrillation I48.91 Hypertension I10 Anxiety F41.9
[2023-09-22] MEDS: ATENOLOL 25 MG TABLET PO SCH (20:43)
[2023-09-22] MEDS: LATANOPROST 0.005% OP SOLN 2.5 ML BTL OPB SCH (20:44)
[2023-09-22] MEDS: SENNA 8.6 MG TAB PO SCH (20:44)
[2023-09-22] MEDS: DOCUSATE SODIUM 100 MG CAP PO SCH (20:44)
[2023-09-23] MEDS: ALPRAZolam 0.25 MG TABLET PO PRN (00:18)
[2023-09-23 06:33] LABS: Basophils # (auto) 0.01 K/uL (0.00-0.20); Basophils % (auto) 0.1 %; Hematocrit (blood only) 31.6 % (42.0-52.0); Hemoglobin 10.8 g/dl (14.0-18.0); Immature Granulocytes # (auto) 0.05 K/uL (0.01-0.20); Immature Granulocytes % (auto) 0.5 %; Lymphocytes # (auto) 0.77 K/uL (1.20-3.40); Lymphocytes % (auto) 7.3 %; Mean Corpuscular Hemoglobin 32.8 pg (25.0-34.0); Mean Corpuscular Hgb Conc 34.2 g/dL (32.0-36.0); Mean Platelet Volume 9.7 fL (9.4-12.4); Monocytes # (auto) 0.71 K/uL (0.11-0.59); Monocytes % (auto) 6.7 %; Neutrophils % (auto) 85.4 %; Platelet Count 219 K/uL (130-400); RDW Coefficient of Variation 13.2 % (11.5-14.5); RDW Standard Deviation 46.5 fL (36.4-46.3); Red Blood Count 3.29 M/uL (4.70-6.10); White Blood Count 10.54 K/ul (4.8-10.8)
[2023-09-23 06:47] LABS: BUN Creatinine Ratio 21.5 (10-20); Calcium 8.2 mg/dl (8.6-10.3); Creatinine Clr Calc Pharmacy 99.9 ml/min; Est GFR (African American) 103.2 ml/min; Est GFR (Non-African American) 89.1 ml/min; Potassium 3.8 mmol/L (3.5-5.1)
[2023-09-23 07:02] LABS: Thyroid Stimulating Hormone 0.185 uIu/ml (0.300-4.500)
[2023-09-23 07:37] LABS: T4 Free Thyroxine 1.1 ng/dl (0.61-1.60)
--- NOTE | 2023-09-23 07:44 | Hospitalist Progress Note ---
Date of Service September 23, 2023 Assessment & Plan (1) Osteoarthritis of right glenohumeral joint: Plan: s/p Right Reverse Total Shoulder Arthroplasty, Biceps Tenodesis(Right) - Juan M Barkley MD 09/21 EBL 40cc Pain control, bowel regimen, therapy, post-operative orders per primary service Obtaining EKG given appears in afib- ekg confirming afib, rate 62bpm. LAD (appears similar to old EKG w/ afib) -No need to move to monitored bed but if any tachycardia/CP/SOb would obtain repeat chemistries to eval electrolytes/move to monitored bed however appears to be doing quite well post-operatively and ambulating in the room without issue 09/22 WBC wnl, hgb 11.9--> 10.8, acute blood loss anemia in setting of surgery (hemovac output 195cc) and some dilutional aspect from IVF Post-op management per primary service HCTZ/losartan resumed, renal function stable Eliquis to resume today for DVT proph Patient stable for discharge today pending therapy evals Please contact medicine service with any questions/concerns. (2) Atrial fibrillation: Plan: Follows with Dr Guerrero, does not appear to have recent EKG since March but is s/p cardioversion and most recent EKG NSR APPEARS TO BE IN AFIB ON EXAM, however rates controlled and remains in afib EKG confirmed Afib TSH borderline LOW, rec to have repeat TFT w/ PCP but suspect alteration in setting of surgery and was normal in 2022 when last checked Eliquis to resume as above (3) Anxiety: Plan: continue alprazolam as needed (4) Hypertension: Plan: HCTZ-losartan held initially for BPs post-op BP stable, renal function stable and have been resumed for this morning. No lightheaded/dizziness. Electrolytes stable BP 121/78 Plan Hospitalist service will sign off at this time as patient stable for discharge once seen by therapy Please call with any questions/concerns. Admission and Anticipated Discharge Date Admission Date: September 22, 2023 Supervising Physician Co-Signing Physician Notes The patient was not seen by me. The chart was reviewed. Case discussed with RIGOBERTO Newsome. Agree with assessment and plan Subjective Evaluated this morning, sitting up in chair, about to work with therapy. No fever/chills, chest pain, shortness of breath, abdominal pain. No palpitations/lightheaded/dizziness. Pain controlled with ordered medications. Remains in afib, rates controlled. Eliquis to resume at noon once discharged. Planning for discharge today. 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6 L (42.0-52.0) % MCV 96.0 (80.0-100.0) fL MCH 32.8 (25.0-34.0) pg MCHC 34.2 (32.0-36.0) g/dL RDW Std Deviation 46.5 H (36.4-46.3) fL RDW Coeff of [place]are[place] 13.2 (11.5-14.5) % Plt Count 219 (130-400) K/uL MPV 9.7 (9.4-12.4) fL Immature Gran % (Auto) 0.5 % Neut % (Auto) 85.4 % Lymph % (Auto) 7.3 % [place] % (Auto) 6.7 % Eos % (Auto) 0.0 % Baso % (Auto) 0.1 % Neut # (Auto) 9.00 H (1.40-6.50) K/uL Lymph # (Auto) 0.77 L (1.20-3.40) K/uL [place] # (Auto) 0.71 H (0.11-0.59) K/uL Eos # (Auto) 0.00 (0.00-0.50) K/uL Baso # (Auto) 0.01 (0.00-0.20) K/uL Immature Gran # (Auto) 0.05 (0.01-0.20) K/uL Sodium 139 (136-145) mmol/L Potassium 3.8 (3.5-5.1) mmol/L Chloride 108 H (98-107) mmol/L Carbon Dioxide 27 (21-32) mmol/L Anion Gap 4 (3-11) BUN 17 (6-23) mg/dl Creatinine 0.79 (0.6-1.4) mg/dl Est Cr Clr Drug Dosing 99.9 ml/min Est GFR ( Amer) 103.2 ml/min Est GFR (Non-Af Amer) 89.1 ml/min BUN/Creatinine Ratio 21.5 H (10-20) Glucose 114 H (70-99(Fasting)) mg/dl Calcium 8.2 L (8.6-10.3) mg/dl Magnesium 2.0 (1.7-2.4) mg/dl TSH 0.185 L (0.300-4.500) uIu/ml Free T4 1.10 (0.61-1.60) ng/dl Diagnostic Findings Shoulder X-Ray 09/22/23 13:39 XR shoulder RT min 2V routine HISTORY: 73 years-old Male Post shoulder surgery right shoulder arthroplasty COMPARISON: Chest radiograph 09/13/2023 TECHNIQUE: 2 views of the right shoulder FINDINGS: Reverse right shoulder arthroplasty demonstrates satisfactory alignment. Overlying skin baltazar with expected postoperative soft tissue swelling and deep tissue air with surgical drainage catheter. Unchanged appearance of the AC joint. IMPRESSION: Total joint arthroplasty with expected postoperative changes. ACT 112: Negative or not required by law. The above report was generated using voice recognition software. It may contain grammatical, syntax or spelling errors. Electronically signed by: Sam Choi M.D. 09/22/2023 2:30 PM PG Care Time/CCT Total # of Minutes Spent Total Time Spent with Patient: Total time spent is greater than 50% in coordination of care (as documented) at patient's floor/unit and/or counseling patient: Coding Level of Care Code 53828 SUB INP/OBS CARE 2/35MIN Diagnoses Osteoarthritis of right glenohumeral joint M19.011 Atrial fibrillation I48.91 Anxiety F41.9 Hypertension I10
--- NOTE | 2023-09-23 07:52 | Orthopedic Progress Note ---
Date of Service September 23, 2023 Assessment & Plan (1) Osteoarthritis of right glenohumeral joint: Plan: Postop day 1 status post right reverse total shoulder arthroplasty with biceps tenodesis. PT/OT protocols. Nonweightbearing right upper extremity. Shoulder shrugs and pendulum exercises only at this time. Elbow and wrist range of motion. DVT prophylaxis-patient is currently on Eliquis and will take his first dose when he gets home today at noon. SCDs while in the hospital. Pain management as written. DC planning-patient is planning for outpatient PT when arranged. We discussed that with reverse total shoulders, Dr. Ayers's protocol is holding off any formal PT other than small exercises until he sees him back in the office in 2 weeks. (2) Partial thickness rotator cuff tear: (3) Biceps tendinopathy of right upper extremity: Admission and Anticipated Discharge Date Admission Date: September 22, 2023 Subjective Postop day 1 patient ambulating in the room upon entering. Patient is doing well this morning. No complaints. States that his nerve block is still working. Patient is hoping to go home this morning. Physical Exam Physical Exam: Dressings are clean, dry, and intact. Sling is in place. He does have some residual nerve block continue to work although he has good range of motion of his right wrist and fingers Continues to have some decrease sensation mostly in the thumb and index finger. Capillary refill is less than 2 seconds. Patient with known history of A-fib and pulse is irregular rhythm with regular rate. Results & Data Vital Signs (Past 12 Hours) Vital Signs Temp Pulse Resp BP Pulse Ox O2 Del Method 09/23/23 07:08 36.9 C 85 16 127/79 94 Room Air 09/23/23 03:25 36.6 C 59 L 15 123/77 97 Room Air 09/22/23 23:07 36.8 C 72 16 124/74 96 Room Air 09/22/23 21:54 Room Air Laboratory Results Laboratory Results WBC 10.54 K/ul (4.8-10.8) 09/23/23 05:59 RBC 3.29 M/uL (4.70-6.10) L 09/23/23 05:59 Hgb 10.8 g/dl (14.0-18.0) L 09/23/23 05:59 Hct 31.6 % (42.0-52.0) L 09/23/23 05:59 MCV 96.0 fL (80.0-100.0) 09/23/23 05:59 MCH 32.8 pg (25.0-34.0) 09/23/23 05:59 MCHC 34.2 g/dL (32.0-36.0) 09/23/23 05:59 RDW Std Deviation 46.5 fL (36.4-46.3) H 09/23/23 05:59 RDW Coeff of Yarely 13.2 % (11.5-14.5) 09/23/23 05:59 Plt Count 219 K/uL (130-400) 09/23/23 05:59 MPV 9.7 fL (9.4-12.4) 09/23/23 05:59 Immature Gran % (Auto) 0.5 % 09/23/23 05:59 Neut % (Auto) 85.4 % 09/23/23 05:59 Lymph % (Auto) 7.3 % 09/23/23 05:59 [place] % (Auto) 6.7 % 09/23/23 05:59 Eos % (Auto) 0.0 % 09/23/23 05:59 Baso % (Auto) 0.1 % 09/23/23 05:59 Neut # (Auto) 9.00 K/uL (1.40-6.50) H 09/23/23 05:59 Lymph # (Auto) 0.77 K/uL (1.20-3.40) L 09/23/23 05:59 [place] # (Auto) 0.71 K/uL (0.11-0.59) H 09/23/23 05:59 Eos # (Auto) 0.00 K/uL (0.00-0.50) 09/23/23 05:59 Baso # (Auto) 0.01 K/uL (0.00-0.20) 09/23/23 05:59 Immature Gran # (Auto) 0.05 K/uL (0.01-0.20) 09/23/23 05:59 Sodium 139 mmol/L (136-145) 09/23/23 05:59 Potassium 3.8 mmol/L (3.5-5.1) 09/23/23 05:59 Chloride 108 mmol/L (98-107) H 09/23/23 05:59 Carbon Dioxide 27 mmol/L (21-32) 09/23/23 05:59 Anion Gap 4 (3-11) 09/23/23 05:59 BUN 17 mg/dl (6-23) 09/23/23 05:59 Creatinine 0.79 mg/dl (0.6-1.4) 09/23/23 05:59 Est Cr Clr Drug Dosing 99.9 ml/min 09/23/23 05:59 Est GFR ( Amer) 103.2 ml/min 09/23/23 05:59 Est GFR (Non-Af Amer) 89.1 ml/min 09/23/23 05:59 BUN/Creatinine Ratio 21.5 (10-20) H 09/23/23 05:59 Glucose 114 mg/dl (70-99(Fasting)) H 09/23/23 05:59 Calcium 8.2 mg/dl (8.6-10.3) L 09/23/23 05:59 Magnesium 2.0 mg/dl (1.7-2.4) 09/23/23 05:59 TSH 0.185 uIu/ml (0.300-4.500) L 09/23/23 05:59 Free T4 1.10 ng/dl (0.61-1.60) 09/23/23 05:59 Impressions Shoulder X-Ray 09/22/23 13:39 XR shoulder RT min 2V routine HISTORY: 73 years-old Male Post shoulder surgery right shoulder arthroplasty COMPARISON: Chest radiograph 09/13/2023 TECHNIQUE: 2 views of the right shoulder FINDINGS: Reverse right shoulder arthroplasty demonstrates satisfactory alignment. Overlying skin baltazar with expected postoperative soft tissue swelling and deep tissue air with surgical drainage catheter. Unchanged appearance of the AC joint. IMPRESSION: Total joint arthroplasty with expected postoperative changes. ACT 112: Negative or not required by law. The above report was generated using voice recognition software. It may contain grammatical, syntax or spelling errors. Electronically signed by: Sam Choi M.D. 09/22/2023 2:30 PM (2) Partial thickness rotator cuff tear Rotator cuff tear trauma status: nontraumatic Laterality: right Qualified Code(s): M75.111 - Incomplete rotator cuff tear or rupture of right shoulder, not specified as traumatic
[2023-09-23] MEDS: MULTIVITAMIN TAB PO SCH (08:00)
[2023-09-23] MEDS: amLODIPine BESYLATE 5 MG TAB PO SCH (08:00)
[2023-09-23] MEDS ORDERED: LOSARTAN POTASSIUM 50 MG TAB PO SCH (09:00)
[2023-09-23] MEDS ORDERED: hydroCHLOROthiazide 25 MG TAB PO SCH (09:00)
[2023-09-23] MEDS ORDERED: APIXABAN 5 MG TABLET PO SCH (17:00)
--- NOTE | 2023-09-23 17:35 | Electrocardiogram Report ---
Test Reason : Blood Pressure : / mmHG Vent. Rate : 062 BPM Atrial Rate : 258 BPM P-R Int : 000 ms QRS Dur : 088 ms QT Int : 376 ms P-R-T Axes : 000 -67 -48 degrees QTc Int : 381 ms Atrial fibrillation Left axis deviation Inferior infarct , age undetermined Abnormal ECG When compared with ECG of 29-MAR-2023 10:54, (unconfirmed) Atrial fibrillation has replaced Sinus rhythm Incomplete right bundle branch block is no longer Present Inferior infarct is now Present Confirmed by Kush Pennington ([id number]) on 09/23/2023 5:34:39 PM Referred By: Juan M Barkley Confirmed By:Ulisses Pennington
--- NOTE | 2023-09-29 07:14 | Discharge Summary ---
Date of Service September 29, 2023 Admission HPI Per Admitting Provider Patient denies headaches, sweats, fevers, chills, double vision, blurred vision, cough, sore throat, dysphagia, chest pain, shortness of breath at rest, wheezing, n/v/d/c, numbness, tingling, fatigue, urinary symptoms. ROS positive for prior history of A-fib and irregular heart beat corrected with cardioversion. Occasional anxiety. Some shortness of breath walking uphill, history of anemia osteoarthritis including spondylolisthesis lumbar. Admission Exam Per Admitting Provider Physical Exam Constitutional: WD/WN, vitals as above Respiratory: normal respiratory effort; no respiratory distress Cardiovascular: Rate/Rhythm: regular rate and regular rhythm Musculoskeletal: Right shoulder exam demonstrates glenohumeral crepitation with range of motion. Diffuse anterior tenderness. Positive In[place] Neer impingement signs and positive belly press test. Weakness in external rotation and abduction. Range of motion 170 degrees forward flexion and abduction and 80 degrees external rotation 90 degrees internal rotation. Strength external rotation 4+/5 internal rotation 3+ to 4-/5 shoulder abduction 4+/5. Neurocirculatory exam intact. Left shoulder has scar from previous shoulder surgery Skin: no rashes, warm and dry Neurologic: normal touch/pain/proprioception Psychiatric: A+Ox3, euthymic affect Principal Diagnosis Right Shoulder Osteoarthritis Discharge Data Allergies Allergy/AdvReac Type Severity Reaction Status Date / Time Fish Containing Products Allergy Severe All Verified 09/22/23 08:55 seafood- throat swelling No Known Drug Allergies Allergy Unknown none Verified 09/22/23 08:55 Consultations 09/22/23 15:33 Consult Hospitalist Routine Procedures Performed Operation Date: 09/22/23 10:05 Actual Procedures p Right Reverse Total Shoulder Arthroplasty, Biceps Tenodesis(Right) - Juan M Barkley MD Ordered Studies 09/22/23 05:00 US - OR guided needle placemen Routine Hospital Course (1) Osteoarthritis of right glenohumeral joint: Patient: YAMILET KNAPP Admit Date: 09/22/23 MR#: [id number] Att Phy: Juan M Barkley M.D. Acct ID: [id number] Madhuri Phy: Phong Goddard MD Date: 1950 Fam Phy: Age: 73 Location: 3E Sex: M Room/Bed: E312-1 cc: ~ *NOTICE TO RECEIVING [employer]/AGENCY This information is strictly Confidential and protected under [place] law. [place] law prohibits you from making any further disclosure of this information unless further disclosure is expressly permitted by the written consent of the person to whom it pertains or is authorized by law. A general authorization for the release of medical or other information is not sufficient for this purpose. Hospital accepts no responsibility if the information is made available to any other person, INCL UDING THE PATIENT. Date of Service September 23, 2023 Assessment & Plan (1) Osteoarthritis of right glenohumeral joint: Plan: Postop day 1 status post right reverse total shoulder arthroplasty with biceps tenodesis. PT/OT protocols. Nonweightbearing right upper extremity. Shoulder shrugs and pendulum exercises only at this time. Elbow and wrist range of motion. DVT prophylaxis-patient is currently on Eliquis and will take his first dose when he gets home today at noon. SCDs while in the hospital. Pain management as written. DC planning-patient is planning for outpatient PT when arranged. We discussed that with reverse total shoulders, Dr. Ayers's protocol is holding off any formal PT other than small exercises until he sees him back in the office in 2 weeks. (2) Partial thickness rotator cuff tear: (3) Biceps tendinopathy of right upper extremity: Admission and Anticipated Discharge Date Admission Date: September 22, 2023 Subjective Postop day 1 patient ambulating in the room upon entering. Patient is doing well this morning. No complaints. States that his nerve block is still working. Patient is hoping to go home this morning. Physical Exam Physical Exam: Dressings are clean, dry, and intact. Sling is in place. He does have some residual nerve block continue to work although he has good range of motion of his right wrist and fingers Continues to have some decrease sensation mostly in the thumb and index finger. Capillary refill is less than 2 seconds. Patient with known history of A-fib and pulse is irregular rhythm with regular rate. Results & Data Vital Signs (Past 12 Hours) Vital Signs Temp Pulse Resp BP Pulse Ox O2 Del Method 09/23/23 07:08 36.9 C 85 16 127/79 94 Room Air 09/23/23 03:25 36.6 C 59 L 15 123/77 97 Room Air 09/22/23 23:07 36.8 C 72 16 124/74 96 Room Air 09/22/23 21:54 Room Air Laboratory Results Laboratory Results WBC 10.54 K/ul (4.8-10.8) 09/23/23 05:59 RBC 3.29 M/uL (4.70-6.10) L 09/23/23 05:59 Hgb 10.8 g/dl (14.0-18.0) L 09/23/23 05:59 Hct 31.6 % (42.0-52.0) L 09/23/23 05:59 MCV 96.0 fL (80.0-100.0) 09/23/23 05:59 MCH 32.8 pg (25.0-34.0) 09/23/23 05:59 MCHC 34.2 g/dL (32.0-36.0) 09/23/23 05:59 RDW Std Deviation 46.5 fL (36.4-46.3) H 09/23/23 05:59 RDW Coeff of Yarely 13.2 % (11.5-14.5) 09/23/23 05:59 Plt Count 219 K/uL (130-400) 09/23/23 05:59 MPV 9.7 fL (9.4-12.4) 09/23/23 05:59 Immature Gran % (Auto) 0.5 % 09/23/23 05:59 Neut % (Auto) 85.4 % 09/23/23 05:59 Lymph % (Auto) 7.3 % 09/23/23 05:59 [place] % (Auto) 6.7 % 09/23/23 05:59 Eos % (Auto) 0.0 % 09/23/23 05:59 Baso % (Auto) 0.1 % 09/23/23 05:59 Neut # (Auto) 9.00 K/uL (1.40-6.50) H 09/23/23 05:59 Lymph # (Auto) 0.77 K/uL (1.20-3.40) L 09/23/23 05:59 [place] # (Auto) 0.71 K/uL (0.11-0.59) H 09/23/23 05:59 Eos # (Auto) 0.00 K/uL (0.00-0.50) 09/23/23 05:59 Baso # (Auto) 0.01 K/uL (0.00-0.20) 09/23/23 05:59 Immature Gran # (Auto) 0.05 K/uL (0.01-0.20) 09/23/23 05:59 Sodium 139 mmol/L (136-145) 09/23/23 05:59 Potassium 3.8 mmol/L (3.5-5.1) 09/23/23 05:59 Chloride 108 mmol/L (98-107) H 09/23/23 05:59 Carbon Dioxide 27 mmol/L (21-32) 09/23/23 05:59 Anion Gap 4 (3-11) 09/23/23 05:59 BUN 17 mg/dl (6-23) 09/23/23 05:59 Creatinine 0.79 mg/dl (0.6-1.4) 09/23/23 05:59 Est Cr Clr Drug Dosing 99.9 ml/min 09/23/23 05:59 Est GFR ( Amer) 103.2 ml/min 09/23/23 05:59 Est GFR (Non-Af Amer) 89.1 ml/min 09/23/23 05:59 BUN/Creatinine Ratio 21.5 (10-20) H 09/23/23 05:59 Glucose 114 mg/dl (70-99(Fasting)) H 09/23/23 05:59 Calcium 8.2 mg/dl (8.6-10.3) L 09/23/23 05:59 Magnesium 2.0 mg/dl (1.7-2.4) 09/23/23 05:59 TSH 0.185 uIu/ml (0.300-4.500) L 09/23/23 05:59 Free T4 1.10 ng/dl (0.61-1.60) 09/23/23 05:59 Impressions Shoulder X-Ray 09/22/23 13:39 XR shoulder RT min 2V routine HISTORY: 73 years-old Male Post shoulder surgery right shoulder arthroplasty COMPARISON: Chest radiograph 09/13/2023 TECHNIQUE: 2 views of the right shoulder FINDINGS: Reverse right shoulder arthroplasty demonstrates satisfactory alignment. Overlying skin baltazar with expected postoperative soft tissue swelling and deep tissue air with surgical drainage catheter. Unchanged appearance of the AC joint. IMPRESSION: Total joint arthroplasty with expected postoperative changes. ACT 112: Negative or not required by law. The above report was generated using voice recognition software. It may contain grammatical, syntax or spelling errors. Electronically signed by: Sam Choi M.D. 09/22/2023 2:30 PM (2) Partial thickness rotator cuff tear Rotator cuff tear trauma status: nontraumatic Laterality: right Qualified Code(s): M75.111 - Incomplete rotator cuff tear or rupture of right shoulder, not specified as traumatic Signed By: <Electronically signed by Juan M Barkley MD> 09/24/23 193 <Electronically signed by Andre Arthur PA-C> 09/23/23 075 Created: 09/23/23 0747 The status of this report is Signed. (2) Partial thickness rotator cuff tear: (3) Biceps tendinopathy of right upper extremity: Total Time Total Time Spent Total Time Spent (In Minutes): 5 Discharge Plan Discharge Items Patient Disposition: Home - Home Health Services Reason For Visit: Right Shoulder Primary Osteoarthritis, Subluxing B Discharge Diagnosis: Right Shoulder Osteoarthritis Activity: Per Instructions section Weightbearing: Right non-weightbearing Non-emergency contact: Surgeon Call non-emergency contact if: you have any medication questions, your pain is not controlled, your temperature is above 101.5, your wound has increased redness and your wound has increased drainage Follow-up/Referrals: Phong Goddard MD [Primary Care Provider] - Juan M Barkley MD [Surgeon] - (Follow up with Dr. Barkley in 2 weeks from the day of your surgery for your first post operative visit. ) Diet: Regular Addtl Attending Provider Instructions: ACTIVITY RECOMMENDATIONS: SELF CARE INSTRUCTIONS AFTER TOTAL SHOULDER ARTHROPLASTY REVERSE A. You may do daily exercises as taught in physical therapy while in hospital. No lifting with the operative arm. B. You are to wear your sling/immobilizer at all times EXCEPT when performing your daily exercises and for hygiene purposes. C. You may perform dry, daily dressing changes. Please keep your incision covered. You may shower 48 hours after surgery. Do not apply soap or any ointment/lotions directly over incision. Do not soak incision in bath tub/swimming pool. D. You may use ice as needed to operative shoulder. SPECIAL CARE INSTRUCTIONS: VERY IMPORTANT TO READ AND REVIEW A. There are a few signs you need to watch for after you are home. Call [facility] at [phone] if you experience any of the followin. Increased severe shoulder pain. Some pain is expected especially when you exercise. 2. Increased swelling in you shoulder or arm; pain or swelling in either upper extremity. 3. Any fluid drainage from the incision. 4. Shortness of breath or chest pain. B. Please call [facility] at [phone] if you have any questions or concerns about your operation or recovery. C. Call your physician if: 1. Temperature is greater than 101 degrees (F). 2. Pain is not relieved by prescribed pain medications. 3. Increase drainage or redness from incision. 4. Unanswered questions or concerns. FOLLOW UP VISIT: Please call [facility] at [phone] to schedule a follow up appointment with Dr. Barkley or his PA in 12-14 days from your surgery date. Stand-Alone Forms: My [facility], Pain - Opioid Pain Management, Smoking Cessation Medications and DC Order Prescriptions: New acetaminophen 500 mg capsule 1,000 mg PO Q8H 14 Days Qty: 84 0RF oxycodone 5 mg tablet 5 mg PO Q4H MDD 6 PRN (Reason: pain) Qty: 30 0RF Continued amoxicillin 500 mg capsule 2,000 mg PO .COMPLEX Qty: 4 5RF Rx Instructions: 2,000 mg PO 30 MINUTES PRIOR TO DENTAL APPOINTMENTS; ibuprofen 200 mg capsule 600 mg PO Q6H PRN (Reason: Pain) Patient Comments: takes 3 tablets every night latanoprost 0.005 % drops 1 drp OPB HS glucosamine-chondroitin 900 mg tablet 900 mg PO DAILY atenolol 25 mg tablet 25 mg PO QPM amlodipine 5 mg tablet 5 mg PO QAM Rx Instructions: TAKE ONE TABLET BY MOUTH EVERY DAY triamcinolone acetonide 0.1 % cream 1 applic topical UD PRN (Reason: Skin Irritation) Rx Instructions: APPLY TOPICALLY TWICE DAILY alprazolam 0.25 mg tablet 0.25 mg PO DAILY PRN (Reason: Anxiety) losartan-hydrochlorothiazide 100-12.5 mg tablet 1 tab PO QAM Rx Instructions: TAKE 1 TABLET BY MOUTH ONCE DAILY Eliquis 5 mg tablet 5 mg PO BID Rx Instructions: TAKE 1 TABLET BY MOUTH TWICE DAILY Discontinued acetaminophen 500 mg capsule 500 mg PO Q6H PRN (Reason: Pain) Holley/Other Patient Handouts: DVT Post Op Prevention Admission Data Admit Date/Time: 09/22/23 13:39 Attending Provider: Juan M Barkley Admit Provider: Juan M Barkley Primary Care Provider: Phong Goddard Other Providers: Hung Brush Other Interventions: Discharge Summary Assessment (RN) Last Done: 09/23/23 10:25
== END 2023-09-23 11:52 | disposition home health service (06) ==
LOC: ASU 08:24 → 3E 08:24